=== PATIENT | male | born 1960 | race African-American/Black ===

== ENCOUNTER 2017-05-04 16:33 | Inpatient (IN) | payer OTHER ==
[2017-05-04 18:22] VITALS: BMI 31.6
--- NOTE | 2017-05-04 19:16 | HP ---
CIWA Score - CIWA Score Nausea/Vomitin-Mild Nausea/No Vomiting Muscle Tremors: 4-Moderate,w/Arms Extend Anxiety: 4-Mod. Anxious/Guarded Agitation: 4-Moderately Restless Paroxysmal Sweats: 1-Minimal Palms Moist Orientation: 0-Oriented Tacttile Disturbances: 0-None Auditory Disturbances: 0-None Visual Disturbances: 0-None Headache: 0-None Present CIWA-Ar Total Score: 14 Admission ROS S - HPI Chief Complaint: WITHDRAWAL SX Allergies/Adverse Reactions: Allergies Allergy/AdvReac Type Severity Reaction Status Date / Time No Known Allergies Allergy Verified 05/04/17 19:10 History of Present Illness: 56 YEARS OLD MALE WITH LONG HISTORY OF ALCOHOL NICOTINE COCAINE DEPENDENCE HAS ASTHMA BPH, DIABETES II, HYPERTENSION, HYPERLIPIDEMIA, CONSTIPATION, NEUROPATHY AND DEPRESSION IS ADMITTED TO DETOX Exam Limitations: No Limitations - Ebola screening Have you traveled outside of the country in the last 21 days: No (N) Have you had contact with anyone from an Ebola affected area: No Have you been sick,other than usual withdrawal symptoms: No Do you have a fever: No - Review of Systems Constitutional: Changes in sleep, Weight Stable EENT: reports: Blurred Vision (EYE GLASSES) Respiratory: reports: No Symptoms reported Cardiac: reports: No Symptoms Reported GI: reports: Nausea, Poor Fluid Intake, Abdominal cramping : reports: Frequency Musculoskeletal: reports: Back Pain Integumentary: reports: No Symptoms Reported Neuro: reports: Tremors Endocrine: reports: Unexplained Weight Gain Hematology: reports: No Symptoms Reported Psychiatric: reports: Judgement Intact, Orientated x3, Anxious, Depressed Other Systems: Reviewed and Negative Patient History - Patient Medical History Hx Anemia: No Hx Asthma: Yes Hx Chronic Obstructive Pulmonary Disease (COPD): No Hx Cancer: No Hx Cardiac Disorders: No Hx Congestive Heart Failure: No Hx Hypertension: Yes Hx Hypercholesterolemia: Yes Hx Pacemaker: No HX Cerebrovascular Accident: No Hx Seizures: No Hx Dementia: No Hx Diabetes: Yes Hx Gastrointestinal Disorders: No Hx Liver Disease: No Hx Genitourinary Disorders: No Hx Sexually Transmitted Disorders: No Hx Renal Disease (ESRD): No Hx Thyroid Disease: No Hx Human Immunodeficiency Virus (HIV): No Hx Hepatitis C: No Hx Depression: Yes Hx Suicide Attempt: Yes (2000 [place]) Hx Bipolar Disorder: No Hx Schizophrenia: No - Patient Surgical History Past Surgical History: Yes Hx Neurologic Surgery: No Hx Cataract Extraction: No Hx Cardiac Surgery: No Hx Lung Surgery: No Hx Breast Surgery: No Hx Breast Biopsy: No Hx Abdominal Surgery: Yes (HERNIA 1995 2009) Hx Appendectomy: No Hx Cholecystectomy: No Hx Genitourinary Surgery: No Hx Orthopedic Surgery: Yes (RIGHT KNEE 2002) Anesthesia Reaction: No - PPD History Previous Implant?: Yes Documented Results: Positive w/proof Implanted On Prior [facility] Admission?: No PPD to be Administered?: No - Smoking Cessation Smoking history: Current every day smoker Have you smoked in the past 12 months: Yes Aproximately how many cigarettes per day: 20 Cigars Per Day: 0 Hx Chewing Tobacco Use: No Initiated information on smoking cessation: Yes 'Breaking Loose' booklet given: 05/04/17 - Substance & Tx. History Hx Alcohol Use: Yes Hx Substance Use: Yes Substance Use Type: Alcohol, Cocaine Hx Substance Use Treatment: Yes (2006) - Substances Abused Alcohol Route: Oral Frequency: Daily Amount used: 1/2 GALLON VOLKA Age of first use: 15 Date of Last Use: 05/03/17 Family Disease History - Family Disease History Family Disease History: Heart Disease: Mother (), Brother (), [place] : Father (), Other: Father, Mother, Brother Admission Physical Exam S - Vital Signs Vital Signs: Vital Signs - 24 hr 05/04/17 18:05 Temperature 98.8 F Pulse Rate 80 Respiratory 18 Rate Blood Pressure 136/89 - Physical General Appearance: Yes: Appropriately Dressed, Mild Distress, Obese, Tremorous , Irritable, Sweating, Anxious HEENTM: Yes: Hearing grossly Normal, Normal ENT Inspection, Normocephalic, Normal Voice Respiratory: Yes: Chest Non-Tender, Lungs Clear, Normal Breath Sounds, No Respiratory Distress, No Accessory Muscle Use Neck: Yes: Supple, Trachea in good position Breast: Yes: Breasts Symetrical Cardiology: Yes: Regular Rhythm, Regular Rate, S1, S2 Abdominal: Yes: Non Tender, Soft, Decreased BS Genitourinary: Yes: Within Normal Limits Back: Yes: Normal Inspection Musculoskeletal: Yes: full range of Motion, Gait Steady, Back pain, Muscle Pain (RIGHT KNEE) Extremities: Yes: Normal Range of Motion, Non-Tender, Tremors Neurological: Yes: Alert, Motor Strength 5/5, Normal Response, Depressed Affect Integumentary: Yes: Warm Lymphatic: Yes: Within Normal Limits - Diagnostic (1) Alcohol dependence with uncomplicated withdrawal Current Visit: Yes Status: Acute (2) Cocaine dependence, uncomplicated Current Visit: Yes Status: Chronic (3) Nicotine dependence Current Visit: Yes Status: Acute Qualifiers: Nicotine product type: cigarettes Substance use status: in withdrawal Qualified Code(s): F17.213 - Nicotine dependence, cigarettes, with withdrawal (4) Positive PPD, treated Current Visit: Yes Status: Resolved (5) Asthma Current Visit: Yes Status: Chronic Qualifiers: Asthma severity: mild intermittent Asthma complication type: with status asthmaticus Qualified Code(s): J45.22 - Mild intermittent asthma with status asthmaticus (6) BPH (benign prostatic hyperplasia) Current Visit: Yes Status: Chronic Qualifiers: Lower urinary tract symptom presence: symptoms present Lower urinary tract symptom detail: post-void dribbling Qualified Code(s): N40.1 - Benign prostatic hyperplasia with lower urinary tract symptoms; N39.43 - Post- void dribbling (7) Diabetes mellitus type II, non insulin dependent Current Visit: Yes Status: Chronic (8) Hypertension Current Visit: Yes Status: Chronic Qualifiers: Hypertension type: essential hypertension Qualified Code(s): I10 - Essential (primary) hypertension (9) Hyperlipidemia associated with type 2 diabetes mellitus Current Visit: Yes Status: Chronic (10) Neuropathic arthropathy Current Visit: Yes Status: Chronic (11) Constipation Current Visit: Yes Status: Chronic Qualifiers: Constipation type: slow transit constipation Qualified Code(s): K59.01 - Slow transit constipation (12) Depression (emotion) Current Visit: Yes Status: Suspected Qualifiers: Depression Type: dysthymia Qualified Code(s): F34.1 - Dysthymic disorder Cleared for Admission S - Detox or Rehab [facility] Level of Care: Medically Managed Detox Regimen/Protocol: Librium [facility] Breath Alcohol Content Breath Alcohol Content: 0 Urine Drug Screen - Results Drug Screen Negative: No Urine Drug Screen Results: FRANCESCA-Cocaine
[2017-05-04] MEDS ORDERED: guaiFENesin/D-METHORPHAN HB 10 ML UNIT-DOSE CUPS PO PRN (19:26)
[2017-05-04] MEDS ORDERED: MAGNESIUM HYDROX 2400MG/30ML ORAL SUSPENSION 30 ML CUP PO PRN (19:26)
[2017-05-04] MEDS ORDERED: MAG HYDROX/AL HYDROX/SIMETH 30 ML UNIT-DOSE CUP PO PRN (19:26)
[2017-05-04] MEDS ORDERED: P-EPHED 60MG/TRIPROLIDI 2.5MG TABLET PO PRN (19:26)
[2017-05-04] MEDS ORDERED: chlordiazePOXIDE HCL 25 MG CAPSULE PO ONE (19:26)
[2017-05-04] MEDS ORDERED: NICOTINE POLACRILEX 4 MG GUM BUC PRN (19:26)
[2017-05-04] MEDS ORDERED: chlordiazePOXIDE HCL 25 MG CAPSULE PO PRN (19:26)
[2017-05-04] MEDS ORDERED: MAGNESIUM CITRATE 300 ML BOTTLE PO PRN (19:26)
[2017-05-04] MEDS ORDERED: MENTHOL/PHENOL 1 EACH UD MM PRN (19:26)
[2017-05-04] MEDS ORDERED: LOPERAMIDE HCL 2 MG CAPSULE PO PRN (19:26)
[2017-05-04] MEDS ORDERED: hydrOXYzine PAMOATE 50 MG CAPSULE (FP) PO PRN (19:26)
[2017-05-04] MEDS ORDERED: ALBUTEROL SO4 6.7 GM HFA INHALER IH PRN (19:28)
[2017-05-04] MEDS: THIAMINE HCL 100 MG TABLET (FP) PO SCH (22:28)
[2017-05-04] MEDS: GABAPENTIN 400 MG CAPSULE (FP) PO SCH (22:30)
[2017-05-04] MEDS: chlordiazePOXIDE HCL 25 MG CAPSULE PO SCH (22:30)
[2017-05-04] MEDS: ATORVASTATIN CA 40 MG TABLET (FP) PO SCH (22:30)
[2017-05-05] MEDS: CYCLOBENZAPRINE HCL 10 MG TABLET (FP) PO PRN ×2 (06:04→22:14)
[2017-05-05] MEDS: chlordiazePOXIDE HCL 25 MG CAPSULE PO SCH ×4 (06:04→22:15)
[2017-05-05] MEDS: GABAPENTIN 400 MG CAPSULE (FP) PO SCH ×3 (06:04→22:14)
[2017-05-05] MEDS: metFORMIN HCL 500 MG TABLET (FP) PO SCH ×2 (06:13→17:41)
[2017-05-05] MEDS: NICOTINE 21 MG/24 HOURS TOPICAL PATCH TD SCH (10:19)
[2017-05-05] MEDS: LISINOPRIL 20 MG TABLET (FP) PO SCH (10:20)
[2017-05-05] MEDS: PRENATAL VITAMINS W/ FOLIC ACID TABLET (FP) PO SCH (10:21)
[2017-05-05] MEDS: ASPIRIN 81 MG CHEWABLE TABLETS PO SCH (10:21)
[2017-05-05] MEDS: FINASTERIDE 5 MG TABLET (FP) PO SCH (10:21)
[2017-05-05] MEDS: dilTIAZem HCL 30 MG TABLET (FP) PO SCH (10:21)
[2017-05-05 10:58] LABS: MCH 28.5 pg (25.7-33.7); MCHC 32.4 g/dl (32.0-35.9); MEAN PLT VOLUME 8.8 fl (7.5-11.1); PLATELET COUNT 272 K/MM3 (134-434); RDW 14.5 % (11.9-15.9); WHITE BLOOD COUNT 8.2 K/mm3 (4.0-10.0)
[2017-05-05 11:09] LABS: URINE APPEARANCE CLEAR; URINE BILIRUBIN NEGATIVE (NEGATIVE); URINE BLOOD 1+ (NEGATIVE); URINE COLOR LTYELLOW; URINE GLUCOSE (UA) NEGATIVE (NEGATIVE); URINE KETONE NEGATIVE (NEGATIVE); URINE LEUK ESTERASE NEGATIVE (NEGATIVE); URINE NITRITE NEGATIVE (NEGATIVE); URINE PROTEIN NEGATIVE (NEGATIVE); URINE UROBILINOGEN NEGATIVE mg/dL (0.2-1.0)
[2017-05-05 11:46] LABS: CALCIUM OXALATE CRYSTALS RARE /hpf (NONE SEEN); URINE MUCUS RARE; URINE RBC 6 /hpf (0-3); URINE WBC 3 /hpf (3-5)
--- NOTE | 2017-05-05 11:50 | CONSULT ---
[facility] Psychiatric Consult - Data Date of interview: 05/05/17 Admission source: [facility] Identifying data: Readmission to [facility] for this 56 y/o AA male seeking detox treatment on for alcohol and cocaine dependence.Patient is ,childless,domiciled and employed. Substance Abuse History: Discussed with the patient in this session.Mr Hall confirms this report. Smoking Cessation. Smoking history: Current every day smoker. Have you smoked in the past 12 months: Yes. Aproximately how many cigarettes per day: 20. Cigars Per Day: 0. Hx Chewing Tobacco Use: No. Initiated information on smoking cessation: Yes. 'Breaking Loose' booklet given : 05/04/17. - Substance & Tx. History. Hx Alcohol Use: Yes. Hx Substance Use : Yes. Substance Use Type: Alcohol, Cocaine. Hx Substance Use Treatment: Yes ( 2006). - Substances Abused. Alcohol. Route: Oral. Frequency: Daily. Amount used: 1/2 GALLON VOLKA. Age of first use: 15. Date of Last Use: Medical History: Remarkable for lower back pain,sciatica,migraine headaches, bronchial asthma,dyslipidemia,benign prostatic hyperplasia,neuropathy, hypertension,diabetes mellitus,herniorraphy (?) and a history of orthosurgery ( right knee). Psychiatric History: Patient admits to a [facility] hospitalization at [facility] in [facility].Diagnosed with MDD.Used to be on remeron (dose not recalled).Mr Hall is under the care of a psychiatrist at a mental health clinic in [facility].He admits to a history of one suicide attempt,years ago,via self-mutilation (wrist-cutting). Physical/Sexual Abuse/Trauma History: Patient denies. Additional Comment: Urine Drug Screen Results: FRANCESCA-Cocaine.Noted. Mental Status Exam - Mental Status Exam Alert and Oriented to: Time, Place, Person Cognitive Function: Good Patient Appearance: Unkempt, Disheveled Mood: Withdrawn Affect: Mood Congruent Patient Behavior: Sedated (mildly), Fatigued Speech Pattern: Clear Voice Loudness: Normal Thought Process: Goal Oriented Thought Disorder: Not Present Hallucinations: Denies Suicidal Ideation: Denies Homicidal Ideation: Denies Insight/Judgement: Poor Sleep: Well Appetite: Good Muscle strength/Tone: Normal Gait/Station: Normal Psychiatric Findings - Problem List ([place] 1, 2,3) (1) Alcohol dependence with uncomplicated withdrawal Current Visit: Yes Status: Acute (2) Cocaine dependence, uncomplicated Current Visit: Yes Status: Acute (3) Nicotine dependence Current Visit: Yes Status: Acute Qualifiers: Nicotine product type: cigarettes Substance use status: in withdrawal Qualified Code(s): F17.213 - Nicotine dependence, cigarettes, with withdrawal (4) Substance induced mood disorder Current Visit: Yes Status: Acute (5) Asthma Current Visit: Yes Status: Chronic Qualifiers: Asthma severity: mild intermittent Asthma complication type: with status asthmaticus Qualified Code(s): J45.22 - Mild intermittent asthma with status asthmaticus (6) BPH (benign prostatic hyperplasia) Current Visit: Yes Status: Chronic Qualifiers: Lower urinary tract symptom presence: symptoms present Lower urinary tract symptom detail: post-void dribbling Qualified Code(s): N40.1 - Benign prostatic hyperplasia with lower urinary tract symptoms; R35.0 - Frequency of micturition (7) Diabetes mellitus type II, non insulin dependent Current Visit: Yes Status: Chronic (8) Hyperlipidemia associated with type 2 diabetes mellitus Current Visit: Yes Status: Chronic (9) Hypertension Current Visit: Yes Status: Chronic Qualifiers: Hypertension type: essential hypertension Qualified Code(s): I10 - Essential (primary) hypertension (10) Neuropathic arthropathy Current Visit: Yes Status: Chronic (11) Positive PPD, treated Current Visit: Yes Status: Resolved (12) Constipation Current Visit: Yes Status: Chronic Qualifiers: Constipation type: slow transit constipation Qualified Code(s): K59.01 - Slow transit constipation - Initial Treatment Plan Initial Treatment Plan: Psychoeducation.Detoxification.Medication : remeron 15 mg po hs (reduced).Pharmacy claims are reviewed.Noted script for remeron 45 mg/ hs on 05/01/17 at [place] [employer].Side effects/benefist discussed with the patient.He agrees with this careplan.observation.NO script needed at discharge.
[2017-05-05 12:03] LABS: ALBUMIN 3.3 g/dl (3.4-5.0); ANION GAP 9 (8-16); BILIRUBIN,TOTAL 0.2 mg/dL (0.2-1.0); CALCIUM 8.6 mg/dL (8.5-10.1); CO2 27 mmol/L (21-32); CREATININE 1.4 mg/dL (0.7-1.3); GLUCOSE,RANDOM 102 mg/dL (74-106); SGOT/AST 7 U/L (15-37); SGPT/ALT 20 U/L (12-78); TOT PROT 6.5 g/dl (6.4-8.2)
[2017-05-05 12:04] LABS: ALK PHOS 100 U/L (45-117)
--- NOTE | 2017-05-05 18:44 | EKG ---
Test Reason : Blood Pressure : / mmHG Vent. Rate : 069 BPM Atrial Rate : 069 BPM P-R Int : 164 ms QRS Dur : 086 ms QT Int : 390 ms P-R-T Axes : 065 049 044 degrees QTc Int : 417 ms NORMAL SINUS RHYTHM POSSIBLE LEFT ATRIAL ENLARGEMENT BORDERLINE ECG NO PREVIOUS ECGS AVAILABLE Confirmed by HONEY SANTIAGO MD ([id number]) on 05/05/2017 6:44:44 PM Referred By: Confirmed By:HONEY SANTIAGO MD
--- NOTE | 2017-05-05 20:11 | PN ---
[facility] CIWA - CIWA Score Nausea/Vomitin-Mild Nausea/No Vomiting Muscle Tremors: 3 Anxiety: 3 Agitation: 2 Paroxysmal Sweats: 2 Orientation: 0-Oriented Tacttile Disturbances: 2-Mild Itch/Numbness/Burn Auditory Disturbances: 2-Mild Harshness/Frighten Visual Disturbances: 0-None Headache: 0-None Present CIWA-Ar Total Score: 15 BHS Progress Note (SOAP) Subjective: Fatigue, Tremors. Objective: PT. A & O X 3. NO ACUTE DISTRESS. 05/05/17 20:08 Vital Signs Temperature 96.9 F L 05/05/17 18:58 Pulse Rate 73 05/05/17 18:58 Respiratory Rate 18 05/05/17 18:58 Blood Pressure 130/73 05/05/17 18:58 O2 Sat by Pulse Oximetry (%) Laboratory Tests 05/04/17 05/04/17 05/05/17 10:55 19:26 06:03 WBC RBC Hgb Hct MCV MCH MCHC RDW Plt Count MPV Sodium Potassium Chloride Carbon Dioxide Anion Gap BUN Creatinine Creat Clearance w eGFR POC Glucometer 106 124 Random Glucose Calcium Total Bilirubin AST ALT Alkaline Phosphatase Total Protein Albumin Urine Color Ltyellow Urine Appearance Clear Urine pH 5.0 Ur Specific [place] 1.020 Urine Protein Negative Urine Glucose (UA) Negative Urine Ketones Negative Urine Blood 1+ H Urine Nitrite Negative Urine Bilirubin Negative Urine Urobilinogen Negative Ur Leukocyte Esterase Negative Urine RBC 6 Urine WBC 3 Ur Epithelial Cells Rare Calcium Oxalate Crystal Rare Urine Mucus Rare RPR Titer 05/05/17 05/05/17 05/05/17 08:00 08:00 08:00 WBC 8.2 RBC 5.00 Hgb 14.2 Hct 44.0 MCV 88.0 MCH 28.5 MCHC 32.4 RDW 14.5 Plt Count 272 MPV 8.8 Sodium 146 H Potassium 3.8 Chloride 110 H Carbon Dioxide 27 Anion Gap 9 BUN 18 Creatinine 1.4 H Creat Clearance w eGFR 52.62 POC Glucometer Random Glucose 102 Calcium 8.6 Total Bilirubin 0.2 AST 7 L ALT 20 Alkaline Phosphatase 100 Total Protein 6.5 Albumin 3.3 L Urine Color Urine Appearance Urine pH Ur Specific [place] Urine Protein Urine Glucose (UA) Urine Ketones Urine Blood Urine Nitrite Urine Bilirubin Urine Urobilinogen Ur Leukocyte Esterase Urine RBC Urine WBC Ur Epithelial Cells Calcium Oxalate Crystal Urine Mucus RPR Titer Nonreactive 08/19/17 16:17 WBC RBC Hgb Hct MCV MCH MCHC RDW Plt Count MPV Sodium Potassium Chloride Carbon Dioxide Anion Gap BUN Creatinine Creat Clearance w eGFR POC Glucometer 113 Random Glucose Calcium Total Bilirubin AST ALT Alkaline Phosphatase Total Protein Albumin Urine Color Urine Appearance Urine pH Ur Specific [place] Urine Protein Urine Glucose (UA) Urine Ketones Urine Blood Urine Nitrite Urine Bilirubin Urine Urobilinogen Ur Leukocyte Esterase Urine RBC Urine WBC Ur Epithelial Cells Calcium Oxalate Crystal Urine Mucus RPR Titer LABS NOTED. Assessment: 05/05/17 20:08 WITHDRAWAL SYMPTOMS. Plan: CONTINUE DETOX. REPEAT UA FOR ABNORMAL ADMISSION VALUES (URINE BLOOD, RBC).
[2017-05-05] MEDS: THIAMINE HCL 100 MG TABLET (FP) PO SCH (22:14)
[2017-05-05] MEDS: ATORVASTATIN CA 40 MG TABLET (FP) PO SCH (22:14)
[2017-05-05] MEDS: diphenhydrAMINE HCL 50 MG CAPSULE PO PRN (22:16)
[2017-05-06] MEDS: GABAPENTIN 400 MG CAPSULE (FP) PO SCH ×3 (06:13→22:20)
[2017-05-06] MEDS: chlordiazePOXIDE HCL 25 MG CAPSULE PO SCH ×4 (06:13→17:21)
[2017-05-06] MEDS: CYCLOBENZAPRINE HCL 10 MG TABLET (FP) PO PRN (06:13)
[2017-05-06] MEDS: metFORMIN HCL 500 MG TABLET (FP) PO SCH ×2 (06:13→17:21)
[2017-05-06] MEDS: FINASTERIDE 5 MG TABLET (FP) PO SCH (10:25)
[2017-05-06] MEDS: dilTIAZem HCL 30 MG TABLET (FP) PO SCH (10:25)
[2017-05-06] MEDS: ASPIRIN 81 MG CHEWABLE TABLETS PO SCH (10:25)
[2017-05-06] MEDS: PRENATAL VITAMINS W/ FOLIC ACID TABLET (FP) PO SCH (10:26)
[2017-05-06] MEDS: NICOTINE 21 MG/24 HOURS TOPICAL PATCH TD SCH (10:26)
[2017-05-06] MEDS: LISINOPRIL 20 MG TABLET (FP) PO SCH (10:26)
--- NOTE | 2017-05-06 15:49 | PN ---
[facility] CIWA - CIWA Score Nausea/Vomitin Muscle Tremors: 4-Moderate,w/Arms Extend Anxiety: 4-Mod. Anxious/Guarded Agitation: 4-Moderately Restless Paroxysmal Sweats: 3 Orientation: 0-Oriented Tacttile Disturbances: 1-Very Mild Itch/Numbness Auditory Disturbances: 0-None Visual Disturbances: 0-None Headache: 0-None Present CIWA-Ar Total Score: 19 S Progress Note (SOAP) Subjective: Sweating, tremor, chills, interrupted sleep Objective: 05/06/17 15:46 Last Vital Signs Temp Pulse Resp BP Pulse Ox 96.3 F L 70 18 122/86 05/06/17 10:14 05/06/17 10:14 05/06/17 10:14 05/06/17 10:14 Laboratory Tests 05/04/17 05/04/17 05/05/17 10:55 19:26 06:03 WBC RBC Hgb Hct MCV MCH MCHC RDW Plt Count MPV Sodium Potassium Chloride Carbon Dioxide Anion Gap BUN Creatinine Creat Clearance w eGFR POC Glucometer 106 124 Random Glucose Calcium Total Bilirubin AST ALT Alkaline Phosphatase Total Protein Albumin Urine Color Ltyellow Urine Appearance Clear Urine pH 5.0 Ur Specific [place] 1.020 Urine Protein Negative Urine Glucose (UA) Negative Urine Ketones Negative Urine Blood 1+ H Urine Nitrite Negative Urine Bilirubin Negative Urine Urobilinogen Negative Ur Leukocyte Esterase Negative Urine RBC 6 Urine WBC 3 Ur Epithelial Cells Rare Calcium Oxalate Crystal Rare Urine Mucus Rare RPR Titer 05/05/17 05/05/17 05/05/17 08:00 08:00 08:00 WBC 8.2 RBC 5.00 Hgb 14.2 Hct 44.0 MCV 88.0 MCH 28.5 MCHC 32.4 RDW 14.5 Plt Count 272 MPV 8.8 Sodium 146 H Potassium 3.8 Chloride 110 H Carbon Dioxide 27 Anion Gap 9 BUN 18 Creatinine 1.4 H Creat Clearance w eGFR 52.62 POC Glucometer Random Glucose 102 Calcium 8.6 Total Bilirubin 0.2 AST 7 L ALT 20 Alkaline Phosphatase 100 Total Protein 6.5 Albumin 3.3 L Urine Color Urine Appearance Urine pH Ur Specific [place] Urine Protein Urine Glucose (UA) Urine Ketones Urine Blood Urine Nitrite Urine Bilirubin Urine Urobilinogen Ur Leukocyte Esterase Urine RBC Urine WBC Ur Epithelial Cells Calcium Oxalate Crystal Urine Mucus RPR Titer Nonreactive 05/05/17 05/06/17 16:17 06:15 WBC RBC Hgb Hct MCV MCH MCHC RDW Plt Count MPV Sodium Potassium Chloride Carbon Dioxide Anion Gap BUN Creatinine Creat Clearance w eGFR POC Glucometer 113 100 Random Glucose Calcium Total Bilirubin AST ALT Alkaline Phosphatase Total Protein Albumin Urine Color Urine Appearance Urine pH Ur Specific [place] Urine Protein Urine Glucose (UA) Urine Ketones Urine Blood Urine Nitrite Urine Bilirubin Urine Urobilinogen Ur Leukocyte Esterase Urine RBC Urine WBC Ur Epithelial Cells Calcium Oxalate Crystal Urine Mucus RPR Titer Labs noted: UA shows 1+ blood; bun 18, serum creatinine 1.4, GFR 52.62 Assessment: 05/06/17 15:48 Withdrawal symptoms Noted with prerenal azotemia vs UBALDO Noted with microscopic hematuria Plan: Continue detox Prerenal azotemia vs UBALDO: encouraged to drink lots of water, repeat BMP Microscopic hematuria: encouraged to drink lots of water, repeat UA
[2017-05-06] MEDS: THIAMINE HCL 100 MG TABLET (FP) PO SCH (22:20)
[2017-05-06] MEDS: chlordiazePOXIDE 5 MG CAPSULE PO SCH (22:20)
[2017-05-06] MEDS: ATORVASTATIN CA 40 MG TABLET (FP) PO SCH (22:20)
[2017-05-07] MEDS: chlordiazePOXIDE 5 MG CAPSULE PO SCH ×3 (05:27→17:05)
[2017-05-07] MEDS: GABAPENTIN 400 MG CAPSULE (FP) PO SCH ×3 (05:27→22:09)
[2017-05-07] MEDS: metFORMIN HCL 500 MG TABLET (FP) PO SCH ×2 (07:14→17:05)
[2017-05-07] MEDS: LISINOPRIL 20 MG TABLET (FP) PO SCH (10:14)
[2017-05-07] MEDS: PRENATAL VITAMINS W/ FOLIC ACID TABLET (FP) PO SCH (10:14)
[2017-05-07] MEDS: ASPIRIN 81 MG CHEWABLE TABLETS PO SCH (10:14)
[2017-05-07] MEDS: dilTIAZem HCL 30 MG TABLET (FP) PO SCH (10:14)
[2017-05-07] MEDS: NICOTINE 21 MG/24 HOURS TOPICAL PATCH TD SCH (10:15)
[2017-05-07] MEDS: FINASTERIDE 5 MG TABLET (FP) PO SCH (10:15)
[2017-05-07 10:36] LABS: ANION GAP 6 (8-16); CALCIUM 8.9 mg/dL (8.5-10.1); CO2 30 mmol/L (21-32); CREATININE 1.2 mg/dL (0.7-1.3); GLUCOSE,RANDOM 95 mg/dL (74-106)
--- NOTE | 2017-05-07 10:41 | PN ---
BHS Progress Note (SOAP) Subjective: Sweating,interrupted sleep,restless Objective: 05/07/17 10:40 Vital Signs - 8 hr 05/07/17 05/07/17 05/07/17 03:51 06:24 09:38 Temperature 97.0 F L 97.6 F Pulse Rate 71 74 Respiratory 18 18 20 Rate Blood Pressure 125/83 121/84 Laboratory Last Values WBC 8.2 K/mm3 (4.0-10.0) 05/05/17 08:00 RBC 5.00 M/mm3 (4.00-5.60) 05/05/17 08:00 Hgb 14.2 GM/dL (11.7-16.9) 05/05/17 08:00 Hct 44.0 % (35.4-49) 05/05/17 08:00 MCV 88.0 fl (80-96) 05/05/17 08:00 MCH 28.5 pg (25.7-33.7) 05/05/17 08:00 MCHC 32.4 g/dl (32.0-35.9) 05/05/17 08:00 RDW 14.5 % (11.9-15.9) 05/05/17 08:00 Plt Count 272 K/MM3 (134-434) 05/05/17 08:00 MPV 8.8 fl (7.5-11.1) 05/05/17 08:00 Sodium 142 mmol/L (136-145) 05/07/17 07:00 Potassium 4.3 mmol/L (3.5-5.1) 05/07/17 07:00 Chloride 106 mmol/L (98-107) 05/07/17 07:00 Carbon Dioxide 30 mmol/L (21-32) 05/07/17 07:00 Anion Gap 6 (8-16) L 05/07/17 07:00 BUN 17 mg/dL (7-18) 05/07/17 07:00 Creatinine 1.2 mg/dL (0.7-1.3) 05/07/17 07:00 Creat Clearance w eGFR 52.62 (>60) 05/05/17 08:00 POC Glucometer 112 UNITS (()) 05/07/17 05:35 Random Glucose 95 mg/dL (74-106) 05/07/17 07:00 Calcium 8.9 mg/dL (8.5-10.1) 05/07/17 07:00 Total Bilirubin 0.2 mg/dL (0.2-1.0) 05/05/17 08:00 AST 7 U/L (15-37) L 05/05/17 08:00 ALT 20 U/L (12-78) 05/05/17 08:00 Alkaline Phosphatase 100 U/L (45-117) 05/05/17 08:00 Total Protein 6.5 g/dl (6.4-8.2) 05/05/17 08:00 Albumin 3.3 g/dl (3.4-5.0) L 05/05/17 08:00 Urine Color Ltyellow 05/04/17 10:55 Urine Appearance Clear 05/04/17 10:55 Urine pH 5.0 (5.0-8.0) 05/04/17 10:55 Ur Specific [place] 1.020 (1.005-1.025) 05/04/17 10:55 Urine Protein Negative (NEGATIVE) 05/04/17 10:55 Urine Glucose (UA) Negative (NEGATIVE) 05/04/17 10:55 Urine Ketones Negative (NEGATIVE) 05/04/17 10:55 Urine Blood 1+ (NEGATIVE) H 05/04/17 10:55 Urine Nitrite Negative (NEGATIVE) 05/04/17 10:55 Urine Bilirubin Negative (NEGATIVE) 05/04/17 10:55 Urine Urobilinogen Negative mg/dL (0.2-1.0) 05/04/17 10:55 Ur Leukocyte Esterase Negative (NEGATIVE) 05/04/17 10:55 Urine RBC 6 /hpf (0-3) 05/04/17 10:55 Urine WBC 3 /hpf (3-5) 05/04/17 10:55 Ur Epithelial Cells Rare /hpf (FEW) 05/04/17 10:55 Calcium Oxalate Crystal Rare /hpf (NONE SEEN) 05/04/17 10:55 Urine Mucus Rare 05/04/17 10:55 RPR Titer Nonreactive (NONREACTIVE) 05/05/17 08:00 labs noted Assessment: 05/07/17 10:41 Withdrawal sx. Plan: continue detox
[2017-05-07 14:35] LABS: URINE APPEARANCE SLCLOUDY; URINE BILIRUBIN NEGATIVE (NEGATIVE); URINE BLOOD NEGATIVE (NEGATIVE); URINE COLOR LTYELLOW; URINE GLUCOSE (UA) NEGATIVE (NEGATIVE); URINE KETONE NEGATIVE (NEGATIVE); URINE LEUK ESTERASE NEGATIVE (NEGATIVE); URINE NITRITE NEGATIVE (NEGATIVE); URINE PROTEIN NEGATIVE (NEGATIVE); URINE UROBILINOGEN NEGATIVE mg/dL (0.2-1.0)
[2017-05-07] MEDS: ATORVASTATIN CA 40 MG TABLET (FP) PO SCH (22:09)
[2017-05-07] MEDS: THIAMINE HCL 100 MG TABLET (FP) PO SCH (22:09)
[2017-05-07] MEDS: chlordiazePOXIDE HCL 10 MG CAPSULE PO SCH (22:09)
[2017-05-07] MEDS: diphenhydrAMINE HCL 50 MG CAPSULE PO PRN (22:10)
[2017-05-08] MEDS: chlordiazePOXIDE HCL 10 MG CAPSULE PO SCH ×3 (05:41→16:57)
[2017-05-08] MEDS: GABAPENTIN 400 MG CAPSULE (FP) PO SCH ×3 (05:41→21:42)
[2017-05-08] MEDS: metFORMIN HCL 500 MG TABLET (FP) PO SCH ×2 (07:06→16:55)
[2017-05-08] MEDS: dilTIAZem HCL 30 MG TABLET (FP) PO SCH (10:13)
[2017-05-08] MEDS: PRENATAL VITAMINS W/ FOLIC ACID TABLET (FP) PO SCH (10:13)
[2017-05-08] MEDS: FINASTERIDE 5 MG TABLET (FP) PO SCH (10:13)
[2017-05-08] MEDS: LISINOPRIL 20 MG TABLET (FP) PO SCH (10:13)
[2017-05-08] MEDS: ASPIRIN 81 MG CHEWABLE TABLETS PO SCH (10:13)
[2017-05-08] MEDS: NICOTINE 21 MG/24 HOURS TOPICAL PATCH TD SCH (10:14)
--- NOTE | 2017-05-08 10:51 | DS ---
[facility] Detox Discharge Summary Admission Date: 05/04/17 Discharge Date: 05/08/17 - History Present History: Alcohol Dependence, Cocaine Dependence Additional Comments: DETOX COMPLETED.ALERT O X 3. NAD. PT TO FOLLOW UP WITH HIS PCP AT [facility] FOR MEDICAL MANAGEMENT OF HIS COMORBID CONDITIONS. Pertinent Past History: ASTHMA HYPERTENSION TYPE 2 DM HYPERLIPIDEMIA BENIGN PROSTATE HYPERTROPHY NEUROPATHIC ARTHROPATHY PSYCH HX-MOOD DISORDER - Physical Exam Results Vital Signs: Vital Signs Temperature 97.3 F L 05/08/17 09:32 Pulse Rate 76 05/08/17 09:32 Respiratory Rate 18 05/08/17 09:32 Blood Pressure 132/89 05/08/17 09:32 O2 Sat by Pulse Oximetry (%) Pertinent Admission Physical Exam Findings: WITHDRAWAL SX Laboratory Last Values WBC 8.2 K/mm3 (4.0-10.0) 05/05/17 08:00 RBC 5.00 M/mm3 (4.00-5.60) 05/05/17 08:00 Hgb 14.2 GM/dL (11.7-16.9) 05/05/17 08:00 Hct 44.0 % (35.4-49) 05/05/17 08:00 MCV 88.0 fl (80-96) 05/05/17 08:00 MCH 28.5 pg (25.7-33.7) 05/05/17 08:00 MCHC 32.4 g/dl (32.0-35.9) 05/05/17 08:00 RDW 14.5 % (11.9-15.9) 05/05/17 08:00 Plt Count 272 K/MM3 (134-434) 05/05/17 08:00 MPV 8.8 fl (7.5-11.1) 05/05/17 08:00 Sodium 142 mmol/L (136-145) 05/07/17 07:00 Potassium 4.3 mmol/L (3.5-5.1) 05/07/17 07:00 Chloride 106 mmol/L (98-107) 05/07/17 07:00 Carbon Dioxide 30 mmol/L (21-32) 05/07/17 07:00 Anion Gap 6 (8-16) L 05/07/17 07:00 BUN 17 mg/dL (7-18) 05/07/17 07:00 Creatinine 1.2 mg/dL (0.7-1.3) 05/07/17 07:00 Creat Clearance w eGFR 52.62 (>60) 05/05/17 08:00 POC Glucometer 125 UNITS (()) 05/08/17 05:40 Random Glucose 95 mg/dL (74-106) 05/07/17 07:00 Calcium 8.9 mg/dL (8.5-10.1) 05/07/17 07:00 Total Bilirubin 0.2 mg/dL (0.2-1.0) 05/05/17 08:00 AST 7 U/L (15-37) L 05/05/17 08:00 ALT 20 U/L (12-78) 05/05/17 08:00 Alkaline Phosphatase 100 U/L (45-117) 05/05/17 08:00 Total Protein 6.5 g/dl (6.4-8.2) 05/05/17 08:00 Albumin 3.3 g/dl (3.4-5.0) L 05/05/17 08:00 Urine Color Ltyellow 05/07/17 09:00 Urine Appearance Slcloudy 05/07/17 09:00 Urine pH 5.0 (5.0-8.0) 05/07/17 09:00 Ur Specific [place] 1.025 (1.005-1.025) 05/07/17 09:00 Urine Protein Negative (NEGATIVE) 05/07/17 09:00 Urine Glucose (UA) Negative (NEGATIVE) 05/07/17 09:00 Urine Ketones Negative (NEGATIVE) 05/07/17 09:00 Urine Blood Negative (NEGATIVE) 05/07/17 09:00 Urine Nitrite Negative (NEGATIVE) 05/07/17 09:00 Urine Bilirubin Negative (NEGATIVE) 05/07/17 09:00 Urine Urobilinogen Negative mg/dL (0.2-1.0) 05/07/17 09:00 Ur Leukocyte Esterase Negative (NEGATIVE) 05/07/17 09:00 Urine RBC 6 /hpf (0-3) 05/04/17 10:55 Urine WBC 3 /hpf (3-5) 05/04/17 10:55 Ur Epithelial Cells Rare /hpf (FEW) 05/04/17 10:55 Calcium Oxalate Crystal Rare /hpf (NONE SEEN) 05/04/17 10:55 Urine Mucus Rare 05/04/17 10:55 RPR Titer Nonreactive (NONREACTIVE) 05/05/17 08:00 - Treatment Hospital Course: Detox Protocol Followed, Detoxed Safely, Responded well, Discharged Condition Good, Rehab Referral Accepted Patient has Accepted a Rehab Referral to: [facility] [address] [place] [address] - Medication Discharge Medications: Ambulatory Orders Aspirin [ASA -] 81 mg PO DAILY 05/04/17 Atorvastatin Ca [Lipitor] 40 mg PO HS 05/04/17 Diltiazem [Cardizem -] 30 mg PO TID 05/04/17 Ibuprofen [Motrin -] 400 mg PO TID 05/04/17 Lisinopril [Prinivil -] 40 mg PO DAILY 05/04/17 Metformin HCl [Glucophage -] 500 mg PO BID 05/04/17 Mirtazapine [Remeron -] 45 mg PO DAILY 05/04/17 - AMA Did Patient Leave Against Medical Advice: No
--- NOTE | 2017-05-08 15:16 | HP ---
Psychiatrist Admission - Data Date of interview: 05/08/17 Admission source: 3N Identifying data: This is the first 5N inpatient rehabilitation admission for this 56 year old AA male who is ,childless,domiciled and employed. Medical History: Low back pain,BPH, HTN, DM,migrains, dyslipidemia, h/o orthosurgery R knee. Smokes cigarettes 20 a day. Psychiatric History: Patient reports was diagnosed with anxiety and depression, first psychiatric hospitalizationin 1992 following suicidal attemps as cutting his wrist, admitted to [facility] for 3 weeks, patient reports he was using cocaine and drinking alcohol at that time. Reports 2 subsequent psychiatric hospitalizations with last one in 2000 at [facility] states he jumpted in [facility] [facility]. Currently sees the psychiatrist Maryan Cabrera at [facility] and on Remeron 45 mg jimbo hs, he reports he still feels sad, poor sleep. He treated in the past with Wellbutrin, Paxil, Zoloft. Physical/Sexual Abuse/Trauma History: Denies history of abuse. Vital Signs: Vital Signs - 24 hr 05/07/17 05/07/17 05/08/17 17:09 22:14 03:23 Temperature 96.8 F L 97.9 F Pulse Rate 72 86 Respiratory 19 18 18 Rate Blood Pressure 129/73 124/88 05/08/17 05/08/17 05/08/17 06:17 09:32 14:56 Temperature 97.1 F L 97.3 F L 98 F Pulse Rate 68 76 78 Respiratory 18 18 18 Rate Blood Pressure 123/81 132/89 134/85 Allergies/Adverse Reactions: Allergies Allergy/AdvReac Type Severity Reaction Status Date / Time No Known Allergies Allergy Verified 05/08/17 14:31 Date of last physical exam: 05/05/17 Concur with the findings of this exam: Yes - Substance Abuse/Tx History Hx Alcohol Use: Yes (started at age of 15, daily 1/2 gallon of vodka) Hx Substance Use: Yes Substance Use Type: Cocaine Hx Substance Use Treatment: Yes ([facility] [place]) - Admission Criteria Previous failed treatment: Yes Poor recovery environment: Yes Comorbidities: Yes Lacks judgement: Yes Mental Status Exam - Mental Status Exam Alert and Oriented to: Time, Place, Person Cognitive Function: Good Patient Appearance: Well Groomed Mood: Sad, Anxious Affect: Appropriate, Mood Congruent Patient Behavior: Appropriate, Cooperative Speech Pattern: Clear, Appropriate Voice Loudness: Normal Thought Process: Intact, Goal Oriented Thought Disorder: Not Present Hallucinations: Denies Suicidal Ideation: Denies Homicidal Ideation: Denies Insight/Judgement: Fair Sleep: Poorly, Difficulty falling asleep Appetite: Fair Muscle strength/Tone: Normal Gait/Station: Normal Psychiatric Findings - Problem List ([place] 1, 2,3) (1) Nicotine dependence Current Visit: Yes Status: Acute Qualifiers: Nicotine product type: cigarettes Substance use status: in withdrawal Qualified Code(s): F17.213 - Nicotine dependence, cigarettes, with withdrawal (2) Asthma Current Visit: Yes Status: Chronic Qualifiers: Asthma severity: mild intermittent Asthma complication type: with status asthmaticus Qualified Code(s): J45.22 - Mild intermittent asthma with status asthmaticus (3) Alcohol dependence Current Visit: Yes Status: Acute (4) Cocaine dependence Current Visit: Yes Status: Acute (5) MDD (major depressive disorder) Current Visit: Yes Status: Acute - Initial Treatment Plan Initial Treatment Plan: to continue Remeron 45 mg po hs, add Melatonin 5 mg po hs and Lexapro 5 mg po daily, properties and indications discussed with the patient, continue to monitor progress.
[2017-05-08] MEDS ORDERED: BENZOCAINE 28 GM HEMORRHOIDAL OINTMENT PR ONE (20:05)
[2017-05-08] MEDS: ATORVASTATIN CA 40 MG TABLET (FP) PO SCH (21:42)
[2017-05-08] MEDS: THIAMINE HCL 100 MG TABLET (FP) PO SCH (21:42)
[2017-05-08] MEDS: MIRTAZAPINE 15 MG TABLET (FP) PO SCH (21:42)
[2017-05-08] MEDS: MELATONIN 5 MG TABLETS PO PRN (21:43)
[2017-05-09] MEDS: metFORMIN HCL 500 MG TABLET (FP) PO SCH ×2 (07:27→16:40)
[2017-05-09] MEDS: GABAPENTIN 400 MG CAPSULE (FP) PO SCH ×3 (07:27→22:00)
[2017-05-09] MEDS: ESCITALOPRAM OXALATE 10 MG TABLET (FP) PO SCH (10:36)
[2017-05-09] MEDS: LISINOPRIL 20 MG TABLET (FP) PO SCH (10:36)
[2017-05-09] MEDS: PRENATAL VITAMINS W/ FOLIC ACID TABLET (FP) PO SCH (10:36)
[2017-05-09] MEDS: ASPIRIN 81 MG CHEWABLE TABLETS PO SCH (10:36)
[2017-05-09] MEDS: NICOTINE 21 MG/24 HOURS TOPICAL PATCH TD SCH (10:37)
[2017-05-09] MEDS: CYCLOBENZAPRINE HCL 10 MG TABLET (FP) PO PRN (10:39)
[2017-05-09] MEDS: FINASTERIDE 5 MG TABLET (FP) PO SCH (11:00)
[2017-05-09] MEDS: dilTIAZem HCL 30 MG TABLET (FP) PO SCH (11:00)
[2017-05-09] MEDS: ACETAMINOPHEN 325 MG TABLET (FP) PO PRN (11:15)
[2017-05-09] MEDS: MIRTAZAPINE 15 MG TABLET (FP) PO SCH (22:00)
[2017-05-09] MEDS: ATORVASTATIN CA 40 MG TABLET (FP) PO SCH (22:00)
[2017-05-09] MEDS: THIAMINE HCL 100 MG TABLET (FP) PO SCH (22:00)
[2017-05-09] MEDS: SENNOSIDES 8.6MG TABLET (FP) PO PRN (22:02)
[2017-05-09] MEDS: MELATONIN 5 MG TABLETS PO PRN (22:02)
[2017-05-10] MEDS: metFORMIN HCL 500 MG TABLET (FP) PO SCH ×2 (06:29→16:42)
[2017-05-10] MEDS: GABAPENTIN 400 MG CAPSULE (FP) PO SCH ×3 (06:29→21:32)
[2017-05-10] MEDS: dilTIAZem HCL 30 MG TABLET (FP) PO SCH (10:34)
[2017-05-10] MEDS: ESCITALOPRAM OXALATE 10 MG TABLET (FP) PO SCH (10:34)
[2017-05-10] MEDS: LISINOPRIL 20 MG TABLET (FP) PO SCH (10:34)
[2017-05-10] MEDS: PRENATAL VITAMINS W/ FOLIC ACID TABLET (FP) PO SCH (10:34)
[2017-05-10] MEDS: ASPIRIN 81 MG CHEWABLE TABLETS PO SCH (10:34)
[2017-05-10] MEDS: FINASTERIDE 5 MG TABLET (FP) PO SCH (10:35)
[2017-05-10] MEDS: NICOTINE 21 MG/24 HOURS TOPICAL PATCH TD SCH (10:35)
[2017-05-10] MEDS: MIRTAZAPINE 15 MG TABLET (FP) PO SCH (21:32)
[2017-05-10] MEDS: THIAMINE HCL 100 MG TABLET (FP) PO SCH (21:32)
[2017-05-10] MEDS: ATORVASTATIN CA 40 MG TABLET (FP) PO SCH (21:32)
[2017-05-10] MEDS: MELATONIN 5 MG TABLETS PO PRN (21:33)
[2017-05-10] MEDS: CYCLOBENZAPRINE HCL 10 MG TABLET (FP) PO PRN (21:34)
[2017-05-10] MEDS: diphenhydrAMINE HCL 50 MG CAPSULE PO PRN (21:34)
[2017-05-10] MEDS: SENNOSIDES 8.6MG TABLET (FP) PO PRN (21:48)
[2017-05-11] MEDS: CYCLOBENZAPRINE HCL 10 MG TABLET (FP) PO PRN ×3 (06:35→21:31)
[2017-05-11] MEDS: GABAPENTIN 400 MG CAPSULE (FP) PO SCH ×3 (06:35→21:31)
[2017-05-11] MEDS: metFORMIN HCL 500 MG TABLET (FP) PO SCH ×2 (06:35→16:56)
[2017-05-11] MEDS: NICOTINE 21 MG/24 HOURS TOPICAL PATCH TD SCH (10:34)
[2017-05-11] MEDS: ASPIRIN 81 MG CHEWABLE TABLETS PO SCH (10:35)
[2017-05-11] MEDS: LISINOPRIL 20 MG TABLET (FP) PO SCH (10:35)
[2017-05-11] MEDS: dilTIAZem HCL 30 MG TABLET (FP) PO SCH (10:35)
[2017-05-11] MEDS: ESCITALOPRAM OXALATE 10 MG TABLET (FP) PO SCH (10:35)
[2017-05-11] MEDS: FINASTERIDE 5 MG TABLET (FP) PO SCH (10:36)
[2017-05-11] MEDS: PRENATAL VITAMINS W/ FOLIC ACID TABLET (FP) PO SCH (10:45)
[2017-05-11] MEDS: THIAMINE HCL 100 MG TABLET (FP) PO SCH (21:31)
[2017-05-11] MEDS: diphenhydrAMINE HCL 50 MG CAPSULE PO PRN (21:31)
[2017-05-11] MEDS: MELATONIN 5 MG TABLETS PO PRN (21:32)
[2017-05-11] MEDS: MIRTAZAPINE 15 MG TABLET (FP) PO SCH (21:32)
[2017-05-11] MEDS: SENNOSIDES 8.6MG TABLET (FP) PO PRN (21:32)
[2017-05-11] MEDS: ATORVASTATIN CA 40 MG TABLET (FP) PO SCH (21:32)
[2017-05-12] MEDS: metFORMIN HCL 500 MG TABLET (FP) PO SCH ×2 (06:25→17:47)
[2017-05-12] MEDS: GABAPENTIN 400 MG CAPSULE (FP) PO SCH ×3 (06:25→21:45)
[2017-05-12] MEDS: CYCLOBENZAPRINE HCL 10 MG TABLET (FP) PO PRN ×3 (06:25→21:50)
[2017-05-12] MEDS: ASPIRIN 81 MG CHEWABLE TABLETS PO SCH (09:59)
[2017-05-12] MEDS: PRENATAL VITAMINS W/ FOLIC ACID TABLET (FP) PO SCH (09:59)
[2017-05-12] MEDS: ESCITALOPRAM OXALATE 10 MG TABLET (FP) PO SCH (10:00)
[2017-05-12] MEDS: LISINOPRIL 20 MG TABLET (FP) PO SCH (10:00)
[2017-05-12] MEDS: dilTIAZem HCL 30 MG TABLET (FP) PO SCH (10:01)
[2017-05-12] MEDS: NICOTINE 21 MG/24 HOURS TOPICAL PATCH TD SCH (10:01)
[2017-05-12] MEDS: FINASTERIDE 5 MG TABLET (FP) PO SCH (10:01)
[2017-05-12] MEDS: MIRTAZAPINE 15 MG TABLET (FP) PO SCH (21:45)
[2017-05-12] MEDS: diphenhydrAMINE HCL 50 MG CAPSULE PO PRN (21:45)
[2017-05-12] MEDS: THIAMINE HCL 100 MG TABLET (FP) PO SCH (21:45)
[2017-05-12] MEDS: ATORVASTATIN CA 40 MG TABLET (FP) PO SCH (21:45)
[2017-05-12] MEDS: MELATONIN 5 MG TABLETS PO PRN (21:50)
[2017-05-12] MEDS: SENNOSIDES 8.6MG TABLET (FP) PO PRN (21:50)
[2017-05-13] MEDS: CYCLOBENZAPRINE HCL 10 MG TABLET (FP) PO PRN ×3 (06:58→21:50)
[2017-05-13] MEDS: metFORMIN HCL 500 MG TABLET (FP) PO SCH ×2 (06:58→16:40)
[2017-05-13] MEDS: GABAPENTIN 400 MG CAPSULE (FP) PO SCH ×3 (06:58→21:47)
[2017-05-13] MEDS: PRENATAL VITAMINS W/ FOLIC ACID TABLET (FP) PO SCH (10:22)
[2017-05-13] MEDS: ESCITALOPRAM OXALATE 10 MG TABLET (FP) PO SCH (10:22)
[2017-05-13] MEDS: ASPIRIN 81 MG CHEWABLE TABLETS PO SCH (10:22)
[2017-05-13] MEDS: dilTIAZem HCL 30 MG TABLET (FP) PO SCH (10:23)
[2017-05-13] MEDS: LISINOPRIL 20 MG TABLET (FP) PO SCH (10:23)
[2017-05-13] MEDS: FINASTERIDE 5 MG TABLET (FP) PO SCH (10:24)
[2017-05-13] MEDS: NICOTINE 21 MG/24 HOURS TOPICAL PATCH TD SCH (10:25)
[2017-05-13] MEDS: MIRTAZAPINE 15 MG TABLET (FP) PO SCH (21:47)
[2017-05-13] MEDS: THIAMINE HCL 100 MG TABLET (FP) PO SCH (21:47)
[2017-05-13] MEDS: ATORVASTATIN CA 40 MG TABLET (FP) PO SCH (21:47)
[2017-05-13] MEDS: MELATONIN 5 MG TABLETS PO PRN (21:48)
[2017-05-13] MEDS: diphenhydrAMINE HCL 50 MG CAPSULE PO PRN (21:48)
[2017-05-13] MEDS: SENNOSIDES 8.6MG TABLET (FP) PO PRN (21:50)
[2017-05-14] MEDS: GABAPENTIN 400 MG CAPSULE (FP) PO SCH ×3 (06:30→21:48)
[2017-05-14] MEDS: CYCLOBENZAPRINE HCL 10 MG TABLET (FP) PO PRN ×3 (06:30→21:49)
[2017-05-14] MEDS: metFORMIN HCL 500 MG TABLET (FP) PO SCH ×2 (06:30→17:00)
[2017-05-14] MEDS: LISINOPRIL 20 MG TABLET (FP) PO SCH (10:46)
[2017-05-14] MEDS: ASPIRIN 81 MG CHEWABLE TABLETS PO SCH (10:46)
[2017-05-14] MEDS: dilTIAZem HCL 30 MG TABLET (FP) PO SCH (10:46)
[2017-05-14] MEDS: ESCITALOPRAM OXALATE 10 MG TABLET (FP) PO SCH (10:46)
[2017-05-14] MEDS: PRENATAL VITAMINS W/ FOLIC ACID TABLET (FP) PO SCH (10:48)
[2017-05-14] MEDS: FINASTERIDE 5 MG TABLET (FP) PO SCH (10:48)
[2017-05-14] MEDS: NICOTINE 21 MG/24 HOURS TOPICAL PATCH TD SCH (10:48)
[2017-05-14] MEDS: THIAMINE HCL 100 MG TABLET (FP) PO SCH (21:48)
[2017-05-14] MEDS: ATORVASTATIN CA 40 MG TABLET (FP) PO SCH (21:48)
[2017-05-14] MEDS: MIRTAZAPINE 15 MG TABLET (FP) PO SCH (21:48)
[2017-05-14] MEDS: MELATONIN 5 MG TABLETS PO PRN (21:49)
[2017-05-14] MEDS: SENNOSIDES 8.6MG TABLET (FP) PO PRN (21:49)
[2017-05-15] MEDS: CYCLOBENZAPRINE HCL 10 MG TABLET (FP) PO PRN ×2 (06:16→21:39)
[2017-05-15] MEDS: metFORMIN HCL 500 MG TABLET (FP) PO SCH ×2 (06:16→17:09)
[2017-05-15] MEDS: GABAPENTIN 400 MG CAPSULE (FP) PO SCH ×3 (06:16→21:39)
[2017-05-15] MEDS: ASPIRIN 81 MG CHEWABLE TABLETS PO SCH (10:46)
[2017-05-15] MEDS: ESCITALOPRAM OXALATE 10 MG TABLET (FP) PO SCH (10:47)
[2017-05-15] MEDS: dilTIAZem HCL 30 MG TABLET (FP) PO SCH (10:47)
[2017-05-15] MEDS: NICOTINE 21 MG/24 HOURS TOPICAL PATCH TD SCH (10:48)
[2017-05-15] MEDS: PRENATAL VITAMINS W/ FOLIC ACID TABLET (FP) PO SCH (10:49)
[2017-05-15] MEDS: FINASTERIDE 5 MG TABLET (FP) PO SCH (10:49)
[2017-05-15] MEDS: LISINOPRIL 20 MG TABLET (FP) PO SCH (10:49)
[2017-05-15] MEDS: ATORVASTATIN CA 40 MG TABLET (FP) PO SCH (21:38)
[2017-05-15] MEDS: THIAMINE HCL 100 MG TABLET (FP) PO SCH (21:38)
[2017-05-15] MEDS: MIRTAZAPINE 15 MG TABLET (FP) PO SCH (21:39)
[2017-05-15] MEDS: SENNOSIDES 8.6MG TABLET (FP) PO PRN (21:39)
[2017-05-15] MEDS: diphenhydrAMINE HCL 50 MG CAPSULE PO PRN (21:39)
[2017-05-15] MEDS: MELATONIN 5 MG TABLETS PO PRN (21:39)
[2017-05-16] MEDS: metFORMIN HCL 500 MG TABLET (FP) PO SCH ×2 (06:33→17:15)
[2017-05-16] MEDS: GABAPENTIN 400 MG CAPSULE (FP) PO SCH ×3 (06:33→21:48)
[2017-05-16] MEDS: CYCLOBENZAPRINE HCL 10 MG TABLET (FP) PO PRN ×3 (06:34→21:48)
[2017-05-16] MEDS: PRENATAL VITAMINS W/ FOLIC ACID TABLET (FP) PO SCH (10:17)
[2017-05-16] MEDS: dilTIAZem HCL 30 MG TABLET (FP) PO SCH (10:17)
[2017-05-16] MEDS: LISINOPRIL 20 MG TABLET (FP) PO SCH (10:17)
[2017-05-16] MEDS: FINASTERIDE 5 MG TABLET (FP) PO SCH (10:18)
[2017-05-16] MEDS: NICOTINE 21 MG/24 HOURS TOPICAL PATCH TD SCH (10:18)
[2017-05-16] MEDS: ASPIRIN 81 MG CHEWABLE TABLETS PO SCH (10:18)
[2017-05-16] MEDS: ESCITALOPRAM OXALATE 10 MG TABLET (FP) PO SCH (10:19)
[2017-05-16] MEDS: ATORVASTATIN CA 40 MG TABLET (FP) PO SCH (21:46)
[2017-05-16] MEDS: MIRTAZAPINE 15 MG TABLET (FP) PO SCH (21:46)
[2017-05-16] MEDS: THIAMINE HCL 100 MG TABLET (FP) PO SCH (21:47)
[2017-05-16] MEDS: MELATONIN 5 MG TABLETS PO PRN (21:48)
[2017-05-16] MEDS: diphenhydrAMINE HCL 50 MG CAPSULE PO PRN (21:49)
[2017-05-16] MEDS: SENNOSIDES 8.6MG TABLET (FP) PO PRN (21:50)
[2017-05-17] MEDS: metFORMIN HCL 500 MG TABLET (FP) PO SCH ×2 (06:18→16:59)
[2017-05-17] MEDS: CYCLOBENZAPRINE HCL 10 MG TABLET (FP) PO PRN ×2 (06:18→21:48)
[2017-05-17] MEDS: GABAPENTIN 400 MG CAPSULE (FP) PO SCH ×3 (06:18→21:44)
[2017-05-17] MEDS: LISINOPRIL 20 MG TABLET (FP) PO SCH (10:30)
[2017-05-17] MEDS: ASPIRIN 81 MG CHEWABLE TABLETS PO SCH (10:30)
[2017-05-17] MEDS: PRENATAL VITAMINS W/ FOLIC ACID TABLET (FP) PO SCH (10:30)
[2017-05-17] MEDS: dilTIAZem HCL 30 MG TABLET (FP) PO SCH (10:31)
[2017-05-17] MEDS: ESCITALOPRAM OXALATE 10 MG TABLET (FP) PO SCH (10:31)
[2017-05-17] MEDS: FINASTERIDE 5 MG TABLET (FP) PO SCH (10:32)
[2017-05-17] MEDS: NICOTINE 21 MG/24 HOURS TOPICAL PATCH TD SCH (10:32)
[2017-05-17] MEDS: diphenhydrAMINE HCL 50 MG CAPSULE PO PRN (21:44)
[2017-05-17] MEDS: ATORVASTATIN CA 40 MG TABLET (FP) PO SCH (21:44)
[2017-05-17] MEDS: THIAMINE HCL 100 MG TABLET (FP) PO SCH (21:44)
[2017-05-17] MEDS: MIRTAZAPINE 15 MG TABLET (FP) PO SCH (21:45)
[2017-05-17] MEDS ORDERED: PT OWN MED DRAWER 7, Y5N ONE (21:46)
[2017-05-17] MEDS: MELATONIN 5 MG TABLETS PO PRN (21:47)
[2017-05-17] MEDS: SENNOSIDES 8.6MG TABLET (FP) PO PRN (21:48)
[2017-05-18] MEDS: metFORMIN HCL 500 MG TABLET (FP) PO SCH ×2 (06:43→17:16)
[2017-05-18] MEDS: CYCLOBENZAPRINE HCL 10 MG TABLET (FP) PO PRN ×3 (06:43→21:41)
[2017-05-18] MEDS: GABAPENTIN 400 MG CAPSULE (FP) PO SCH ×3 (06:43→21:40)
[2017-05-18] MEDS: NICOTINE 21 MG/24 HOURS TOPICAL PATCH TD SCH (10:39)
[2017-05-18] MEDS: LISINOPRIL 20 MG TABLET (FP) PO SCH (10:41)
[2017-05-18] MEDS: PRENATAL VITAMINS W/ FOLIC ACID TABLET (FP) PO SCH (10:41)
[2017-05-18] MEDS: dilTIAZem HCL 30 MG TABLET (FP) PO SCH (10:41)
[2017-05-18] MEDS: ESCITALOPRAM OXALATE 10 MG TABLET (FP) PO SCH (10:41)
[2017-05-18] MEDS: ASPIRIN 81 MG CHEWABLE TABLETS PO SCH (10:41)
[2017-05-18] MEDS: FINASTERIDE 5 MG TABLET (FP) PO SCH (10:42)
[2017-05-18] MEDS: THIAMINE HCL 100 MG TABLET (FP) PO SCH (21:40)
[2017-05-18] MEDS: MIRTAZAPINE 15 MG TABLET (FP) PO SCH (21:40)
[2017-05-18] MEDS: ATORVASTATIN CA 40 MG TABLET (FP) PO SCH (21:40)
[2017-05-18] MEDS: diphenhydrAMINE HCL 50 MG CAPSULE PO PRN (21:41)
[2017-05-18] MEDS: SENNOSIDES 8.6MG TABLET (FP) PO PRN (21:41)
[2017-05-18] MEDS: MELATONIN 5 MG TABLETS PO PRN (21:41)
[2017-05-19] MEDS: metFORMIN HCL 500 MG TABLET (FP) PO SCH ×2 (06:53→17:03)
[2017-05-19] MEDS: GABAPENTIN 400 MG CAPSULE (FP) PO SCH ×3 (06:53→21:37)
[2017-05-19] MEDS: CYCLOBENZAPRINE HCL 10 MG TABLET (FP) PO PRN ×3 (06:54→21:37)
[2017-05-19] MEDS: ASPIRIN 81 MG CHEWABLE TABLETS PO SCH (10:23)
[2017-05-19] MEDS: ESCITALOPRAM OXALATE 10 MG TABLET (FP) PO SCH (10:24)
[2017-05-19] MEDS: LISINOPRIL 20 MG TABLET (FP) PO SCH (10:24)
[2017-05-19] MEDS: dilTIAZem HCL 30 MG TABLET (FP) PO SCH (10:24)
[2017-05-19] MEDS: FINASTERIDE 5 MG TABLET (FP) PO SCH (10:25)
[2017-05-19] MEDS: PRENATAL VITAMINS W/ FOLIC ACID TABLET (FP) PO SCH (10:25)
[2017-05-19] MEDS: NICOTINE 21 MG/24 HOURS TOPICAL PATCH TD SCH (10:25)
[2017-05-19] MEDS: SENNOSIDES 8.6MG TABLET (FP) PO PRN (21:37)
[2017-05-19] MEDS: ATORVASTATIN CA 40 MG TABLET (FP) PO SCH (21:37)
[2017-05-19] MEDS: MIRTAZAPINE 15 MG TABLET (FP) PO SCH (21:37)
[2017-05-19] MEDS: MELATONIN 5 MG TABLETS PO PRN (21:37)
[2017-05-19] MEDS: THIAMINE HCL 100 MG TABLET (FP) PO SCH (21:37)
[2017-05-19] MEDS: diphenhydrAMINE HCL 50 MG CAPSULE PO PRN (21:38)
[2017-05-20] MEDS: GABAPENTIN 400 MG CAPSULE (FP) PO SCH ×3 (06:40→21:31)
[2017-05-20] MEDS: metFORMIN HCL 500 MG TABLET (FP) PO SCH ×2 (06:40→16:52)
[2017-05-20] MEDS: CYCLOBENZAPRINE HCL 10 MG TABLET (FP) PO PRN ×3 (06:41→21:31)
[2017-05-20] MEDS: ASPIRIN 81 MG CHEWABLE TABLETS PO SCH (10:26)
[2017-05-20] MEDS: dilTIAZem HCL 30 MG TABLET (FP) PO SCH (10:26)
[2017-05-20] MEDS: LISINOPRIL 20 MG TABLET (FP) PO SCH (10:26)
[2017-05-20] MEDS: FINASTERIDE 5 MG TABLET (FP) PO SCH (10:26)
[2017-05-20] MEDS: PRENATAL VITAMINS W/ FOLIC ACID TABLET (FP) PO SCH (10:26)
[2017-05-20] MEDS: ESCITALOPRAM OXALATE 10 MG TABLET (FP) PO SCH (10:26)
[2017-05-20] MEDS: NICOTINE 21 MG/24 HOURS TOPICAL PATCH TD SCH (10:27)
[2017-05-20] MEDS: ATORVASTATIN CA 40 MG TABLET (FP) PO SCH (21:31)
[2017-05-20] MEDS: THIAMINE HCL 100 MG TABLET (FP) PO SCH (21:31)
[2017-05-20] MEDS: diphenhydrAMINE HCL 50 MG CAPSULE PO PRN (21:31)
[2017-05-20] MEDS: MELATONIN 5 MG TABLETS PO PRN (21:31)
[2017-05-20] MEDS: SENNOSIDES 8.6MG TABLET (FP) PO PRN (21:31)
[2017-05-20] MEDS: MIRTAZAPINE 15 MG TABLET (FP) PO SCH (21:31)
[2017-05-21] MEDS: GABAPENTIN 400 MG CAPSULE (FP) PO SCH ×3 (06:41→21:50)
[2017-05-21] MEDS: metFORMIN HCL 500 MG TABLET (FP) PO SCH ×2 (06:41→16:40)
[2017-05-21] MEDS: CYCLOBENZAPRINE HCL 10 MG TABLET (FP) PO PRN ×3 (06:41→21:54)
[2017-05-21] MEDS: FINASTERIDE 5 MG TABLET (FP) PO SCH (10:20)
[2017-05-21] MEDS: LISINOPRIL 20 MG TABLET (FP) PO SCH (10:20)
[2017-05-21] MEDS: ASPIRIN 81 MG CHEWABLE TABLETS PO SCH (10:20)
[2017-05-21] MEDS: dilTIAZem HCL 30 MG TABLET (FP) PO SCH (10:20)
[2017-05-21] MEDS: ESCITALOPRAM OXALATE 10 MG TABLET (FP) PO SCH (10:21)
[2017-05-21] MEDS: PRENATAL VITAMINS W/ FOLIC ACID TABLET (FP) PO SCH (10:21)
[2017-05-21] MEDS: ACETAMINOPHEN 325 MG TABLET (FP) PO PRN (10:22)
[2017-05-21] MEDS: NICOTINE 21 MG/24 HOURS TOPICAL PATCH TD SCH (10:22)
[2017-05-21] MEDS: THIAMINE HCL 100 MG TABLET (FP) PO SCH (21:50)
[2017-05-21] MEDS: MIRTAZAPINE 15 MG TABLET (FP) PO SCH (21:50)
[2017-05-21] MEDS: ATORVASTATIN CA 40 MG TABLET (FP) PO SCH (21:51)
[2017-05-21] MEDS: diphenhydrAMINE HCL 50 MG CAPSULE PO PRN (21:51)
[2017-05-21] MEDS: MELATONIN 5 MG TABLETS PO PRN (21:52)
[2017-05-21] MEDS: SENNOSIDES 8.6MG TABLET (FP) PO PRN (21:54)
[2017-05-22] MEDS: GABAPENTIN 400 MG CAPSULE (FP) PO SCH ×3 (06:18→21:43)
[2017-05-22] MEDS: CYCLOBENZAPRINE HCL 10 MG TABLET (FP) PO PRN ×3 (06:18→21:45)
[2017-05-22] MEDS: metFORMIN HCL 500 MG TABLET (FP) PO SCH ×2 (06:18→16:36)
[2017-05-22] MEDS: PRENATAL VITAMINS W/ FOLIC ACID TABLET (FP) PO SCH (10:45)
[2017-05-22] MEDS: ESCITALOPRAM OXALATE 10 MG TABLET (FP) PO SCH (10:45)
[2017-05-22] MEDS: ASPIRIN 81 MG CHEWABLE TABLETS PO SCH (10:45)
[2017-05-22] MEDS: FINASTERIDE 5 MG TABLET (FP) PO SCH (10:45)
[2017-05-22] MEDS: LISINOPRIL 20 MG TABLET (FP) PO SCH (10:46)
[2017-05-22] MEDS: dilTIAZem HCL 30 MG TABLET (FP) PO SCH (10:46)
[2017-05-22] MEDS: NICOTINE 21 MG/24 HOURS TOPICAL PATCH TD SCH (10:46)
[2017-05-22] MEDS: THIAMINE HCL 100 MG TABLET (FP) PO SCH (21:42)
[2017-05-22] MEDS: MIRTAZAPINE 15 MG TABLET (FP) PO SCH (21:43)
[2017-05-22] MEDS: ATORVASTATIN CA 40 MG TABLET (FP) PO SCH (21:43)
[2017-05-22] MEDS: MELATONIN 5 MG TABLETS PO PRN (21:45)
[2017-05-22] MEDS: SENNOSIDES 8.6MG TABLET (FP) PO PRN (21:45)
[2017-05-22] MEDS: diphenhydrAMINE HCL 50 MG CAPSULE PO PRN (21:45)
[2017-05-23] MEDS: metFORMIN HCL 500 MG TABLET (FP) PO SCH ×2 (06:16→16:39)
[2017-05-23] MEDS: GABAPENTIN 400 MG CAPSULE (FP) PO SCH ×3 (06:16→21:46)
[2017-05-23] MEDS: CYCLOBENZAPRINE HCL 10 MG TABLET (FP) PO PRN ×3 (06:18→21:48)
[2017-05-23] MEDS: FINASTERIDE 5 MG TABLET (FP) PO SCH (10:24)
[2017-05-23] MEDS: PRENATAL VITAMINS W/ FOLIC ACID TABLET (FP) PO SCH (10:24)
[2017-05-23] MEDS: ASPIRIN 81 MG CHEWABLE TABLETS PO SCH (10:24)
[2017-05-23] MEDS: ESCITALOPRAM OXALATE 10 MG TABLET (FP) PO SCH (10:25)
[2017-05-23] MEDS: LISINOPRIL 20 MG TABLET (FP) PO SCH (10:25)
[2017-05-23] MEDS: dilTIAZem HCL 30 MG TABLET (FP) PO SCH (10:25)
[2017-05-23] MEDS: NICOTINE 21 MG/24 HOURS TOPICAL PATCH TD SCH (10:25)
[2017-05-23] MEDS: THIAMINE HCL 100 MG TABLET (FP) PO SCH (21:46)
[2017-05-23] MEDS: ATORVASTATIN CA 40 MG TABLET (FP) PO SCH (21:46)
[2017-05-23] MEDS: MELATONIN 5 MG TABLETS PO PRN (21:47)
[2017-05-23] MEDS: MIRTAZAPINE 15 MG TABLET (FP) PO SCH (21:47)
[2017-05-23] MEDS: SENNOSIDES 8.6MG TABLET (FP) PO PRN (21:48)
[2017-05-23] MEDS: diphenhydrAMINE HCL 50 MG CAPSULE PO PRN (21:49)
[2017-05-24] MEDS: GABAPENTIN 400 MG CAPSULE (FP) PO SCH ×3 (06:36→21:49)
[2017-05-24] MEDS: CYCLOBENZAPRINE HCL 10 MG TABLET (FP) PO PRN ×3 (06:36→21:51)
[2017-05-24] MEDS: metFORMIN HCL 500 MG TABLET (FP) PO SCH ×2 (06:38→16:41)
[2017-05-24] MEDS: NICOTINE 21 MG/24 HOURS TOPICAL PATCH TD SCH (10:36)
[2017-05-24] MEDS: ESCITALOPRAM OXALATE 10 MG TABLET (FP) PO SCH (10:36)
[2017-05-24] MEDS: LISINOPRIL 20 MG TABLET (FP) PO SCH (10:36)
[2017-05-24] MEDS: ASPIRIN 81 MG CHEWABLE TABLETS PO SCH (10:38)
[2017-05-24] MEDS: PRENATAL VITAMINS W/ FOLIC ACID TABLET (FP) PO SCH (10:38)
[2017-05-24] MEDS: dilTIAZem HCL 30 MG TABLET (FP) PO SCH (10:38)
[2017-05-24] MEDS: FINASTERIDE 5 MG TABLET (FP) PO SCH (10:39)
[2017-05-24] MEDS: THIAMINE HCL 100 MG TABLET (FP) PO SCH (21:48)
[2017-05-24] MEDS: ATORVASTATIN CA 40 MG TABLET (FP) PO SCH (21:49)
[2017-05-24] MEDS: MIRTAZAPINE 15 MG TABLET (FP) PO SCH (21:49)
[2017-05-24] MEDS: MELATONIN 5 MG TABLETS PO PRN (21:50)
[2017-05-25] MEDS: CYCLOBENZAPRINE HCL 10 MG TABLET (FP) PO PRN ×3 (06:20→21:45)
[2017-05-25] MEDS: GABAPENTIN 400 MG CAPSULE (FP) PO SCH ×3 (06:21→21:44)
[2017-05-25] MEDS: metFORMIN HCL 500 MG TABLET (FP) PO SCH ×2 (07:04→16:35)
[2017-05-25] MEDS ORDERED: PT OWN MED DRAWER 7, Y5N ONE (08:41)
[2017-05-25] MEDS: ESCITALOPRAM OXALATE 10 MG TABLET (FP) PO SCH (10:33)
[2017-05-25] MEDS: dilTIAZem HCL 30 MG TABLET (FP) PO SCH (10:33)
[2017-05-25] MEDS: FINASTERIDE 5 MG TABLET (FP) PO SCH (10:33)
[2017-05-25] MEDS: NICOTINE 21 MG/24 HOURS TOPICAL PATCH TD SCH (10:34)
[2017-05-25] MEDS: ASPIRIN 81 MG CHEWABLE TABLETS PO SCH (10:34)
[2017-05-25] MEDS: PRENATAL VITAMINS W/ FOLIC ACID TABLET (FP) PO SCH (10:34)
[2017-05-25] MEDS: LISINOPRIL 20 MG TABLET (FP) PO SCH (10:34)
[2017-05-25] MEDS: THIAMINE HCL 100 MG TABLET (FP) PO SCH (21:44)
[2017-05-25] MEDS: ATORVASTATIN CA 40 MG TABLET (FP) PO SCH (21:44)
[2017-05-25] MEDS: diphenhydrAMINE HCL 50 MG CAPSULE PO PRN (21:45)
[2017-05-25] MEDS: MIRTAZAPINE 15 MG TABLET (FP) PO SCH (21:45)
[2017-05-25] MEDS: MELATONIN 5 MG TABLETS PO PRN (21:45)
[2017-05-25] MEDS: SENNOSIDES 8.6MG TABLET (FP) PO PRN (21:45)
[2017-05-26] MEDS: GABAPENTIN 400 MG CAPSULE (FP) PO SCH ×3 (06:19→21:45)
[2017-05-26] MEDS: CYCLOBENZAPRINE HCL 10 MG TABLET (FP) PO PRN ×3 (06:19→21:47)
[2017-05-26] MEDS: metFORMIN HCL 500 MG TABLET (FP) PO SCH ×2 (06:19→16:38)
[2017-05-26] MEDS: FINASTERIDE 5 MG TABLET (FP) PO SCH (10:31)
[2017-05-26] MEDS: ESCITALOPRAM OXALATE 10 MG TABLET (FP) PO SCH (10:32)
[2017-05-26] MEDS: PRENATAL VITAMINS W/ FOLIC ACID TABLET (FP) PO SCH (10:33)
[2017-05-26] MEDS: ASPIRIN 81 MG CHEWABLE TABLETS PO SCH (10:33)
[2017-05-26] MEDS: LISINOPRIL 20 MG TABLET (FP) PO SCH (10:33)
[2017-05-26] MEDS: dilTIAZem HCL 30 MG TABLET (FP) PO SCH (10:33)
[2017-05-26] MEDS: NICOTINE 21 MG/24 HOURS TOPICAL PATCH TD SCH (10:33)
[2017-05-26] MEDS: ATORVASTATIN CA 40 MG TABLET (FP) PO SCH (21:45)
[2017-05-26] MEDS: MIRTAZAPINE 15 MG TABLET (FP) PO SCH (21:45)
[2017-05-26] MEDS: THIAMINE HCL 100 MG TABLET (FP) PO SCH (21:45)
[2017-05-26] MEDS: MELATONIN 5 MG TABLETS PO PRN (21:46)
[2017-05-26] MEDS: diphenhydrAMINE HCL 50 MG CAPSULE PO PRN (21:47)
[2017-05-27] MEDS: metFORMIN HCL 500 MG TABLET (FP) PO SCH ×2 (06:21→16:35)
[2017-05-27] MEDS: GABAPENTIN 400 MG CAPSULE (FP) PO SCH ×3 (06:21→21:44)
[2017-05-27] MEDS: CYCLOBENZAPRINE HCL 10 MG TABLET (FP) PO PRN ×3 (06:21→21:46)
[2017-05-27] MEDS: ASPIRIN 81 MG CHEWABLE TABLETS PO SCH (10:12)
[2017-05-27] MEDS: LISINOPRIL 20 MG TABLET (FP) PO SCH (10:12)
[2017-05-27] MEDS: ESCITALOPRAM OXALATE 10 MG TABLET (FP) PO SCH (10:12)
[2017-05-27] MEDS: PRENATAL VITAMINS W/ FOLIC ACID TABLET (FP) PO SCH (10:12)
[2017-05-27] MEDS: dilTIAZem HCL 30 MG TABLET (FP) PO SCH (10:12)
[2017-05-27] MEDS: FINASTERIDE 5 MG TABLET (FP) PO SCH (10:13)
[2017-05-27] MEDS: NICOTINE 21 MG/24 HOURS TOPICAL PATCH TD SCH (10:13)
[2017-05-27] MEDS: MIRTAZAPINE 15 MG TABLET (FP) PO SCH (21:44)
[2017-05-27] MEDS: ATORVASTATIN CA 40 MG TABLET (FP) PO SCH (21:44)
[2017-05-27] MEDS: THIAMINE HCL 100 MG TABLET (FP) PO SCH (21:44)
[2017-05-27] MEDS: MELATONIN 5 MG TABLETS PO PRN (21:45)
[2017-05-27] MEDS: SENNOSIDES 8.6MG TABLET (FP) PO PRN (21:46)
[2017-05-28] MEDS: GABAPENTIN 400 MG CAPSULE (FP) PO SCH ×3 (06:46→21:56)
[2017-05-28] MEDS: CYCLOBENZAPRINE HCL 10 MG TABLET (FP) PO PRN ×3 (06:46→21:58)
[2017-05-28] MEDS: metFORMIN HCL 500 MG TABLET (FP) PO SCH ×2 (06:46→16:37)
[2017-05-28] MEDS: PRENATAL VITAMINS W/ FOLIC ACID TABLET (FP) PO SCH (10:54)
[2017-05-28] MEDS: ASPIRIN 81 MG CHEWABLE TABLETS PO SCH (10:54)
[2017-05-28] MEDS: dilTIAZem HCL 30 MG TABLET (FP) PO SCH (10:54)
[2017-05-28] MEDS: ESCITALOPRAM OXALATE 10 MG TABLET (FP) PO SCH (10:54)
[2017-05-28] MEDS: FINASTERIDE 5 MG TABLET (FP) PO SCH (10:54)
[2017-05-28] MEDS: NICOTINE 21 MG/24 HOURS TOPICAL PATCH TD SCH (10:55)
[2017-05-28] MEDS: LISINOPRIL 20 MG TABLET (FP) PO SCH (10:55)
[2017-05-28] MEDS: ATORVASTATIN CA 40 MG TABLET (FP) PO SCH (21:56)
[2017-05-28] MEDS: MIRTAZAPINE 15 MG TABLET (FP) PO SCH (21:56)
[2017-05-28] MEDS: MELATONIN 5 MG TABLETS PO PRN (21:57)
[2017-05-28] MEDS: THIAMINE HCL 100 MG TABLET (FP) PO SCH (21:58)
[2017-05-28] MEDS: SENNOSIDES 8.6MG TABLET (FP) PO PRN (21:58)
[2017-05-29] MEDS: metFORMIN HCL 500 MG TABLET (FP) PO SCH ×2 (06:40→16:38)
[2017-05-29] MEDS: CYCLOBENZAPRINE HCL 10 MG TABLET (FP) PO PRN ×3 (06:40→21:43)
[2017-05-29] MEDS: GABAPENTIN 400 MG CAPSULE (FP) PO SCH ×3 (06:40→21:42)
[2017-05-29] MEDS: FINASTERIDE 5 MG TABLET (FP) PO SCH (09:01)
[2017-05-29] MEDS: ASPIRIN 81 MG CHEWABLE TABLETS PO SCH (09:01)
[2017-05-29] MEDS: PRENATAL VITAMINS W/ FOLIC ACID TABLET (FP) PO SCH (09:02)
[2017-05-29] MEDS: NICOTINE 21 MG/24 HOURS TOPICAL PATCH TD SCH (09:02)
[2017-05-29] MEDS: LISINOPRIL 20 MG TABLET (FP) PO SCH (09:02)
[2017-05-29] MEDS: dilTIAZem HCL 30 MG TABLET (FP) PO SCH (09:02)
[2017-05-29] MEDS: ESCITALOPRAM OXALATE 10 MG TABLET (FP) PO SCH (09:02)
[2017-05-29] MEDS: ACETAMINOPHEN 325 MG TABLET (FP) PO PRN (09:03)
[2017-05-29] MEDS: THIAMINE HCL 100 MG TABLET (FP) PO SCH (21:41)
[2017-05-29] MEDS: ATORVASTATIN CA 40 MG TABLET (FP) PO SCH (21:42)
[2017-05-29] MEDS: MIRTAZAPINE 15 MG TABLET (FP) PO SCH (21:42)
[2017-05-29] MEDS: SENNOSIDES 8.6MG TABLET (FP) PO PRN (21:43)
[2017-05-29] MEDS: MELATONIN 5 MG TABLETS PO PRN (21:43)
[2017-05-30] MEDS: GABAPENTIN 400 MG CAPSULE (FP) PO SCH ×3 (06:45→21:39)
[2017-05-30] MEDS: CYCLOBENZAPRINE HCL 10 MG TABLET (FP) PO PRN ×3 (06:45→21:39)
[2017-05-30] MEDS: metFORMIN HCL 500 MG TABLET (FP) PO SCH ×2 (06:45→16:38)
[2017-05-30] MEDS: PRENATAL VITAMINS W/ FOLIC ACID TABLET (FP) PO SCH (10:32)
[2017-05-30] MEDS: FINASTERIDE 5 MG TABLET (FP) PO SCH (10:32)
[2017-05-30] MEDS: dilTIAZem HCL 30 MG TABLET (FP) PO SCH (10:32)
[2017-05-30] MEDS: LISINOPRIL 20 MG TABLET (FP) PO SCH (10:32)
[2017-05-30] MEDS: NICOTINE 21 MG/24 HOURS TOPICAL PATCH TD SCH (10:32)
[2017-05-30] MEDS: ESCITALOPRAM OXALATE 10 MG TABLET (FP) PO SCH (10:32)
[2017-05-30] MEDS: ASPIRIN 81 MG CHEWABLE TABLETS PO SCH (10:32)
[2017-05-30] MEDS: ATORVASTATIN CA 40 MG TABLET (FP) PO SCH (21:39)
[2017-05-30] MEDS: THIAMINE HCL 100 MG TABLET (FP) PO SCH (21:39)
[2017-05-30] MEDS: SENNOSIDES 8.6MG TABLET (FP) PO PRN (21:39)
[2017-05-30] MEDS: MELATONIN 5 MG TABLETS PO PRN (21:40)
[2017-05-30] MEDS: MIRTAZAPINE 15 MG TABLET (FP) PO SCH (21:40)
[2017-05-31] MEDS: GABAPENTIN 400 MG CAPSULE (FP) PO SCH ×3 (06:35→21:26)
[2017-05-31] MEDS: CYCLOBENZAPRINE HCL 10 MG TABLET (FP) PO PRN ×3 (06:35→21:29)
[2017-05-31] MEDS: metFORMIN HCL 500 MG TABLET (FP) PO SCH ×2 (06:35→16:57)
[2017-05-31] MEDS: ASPIRIN 81 MG CHEWABLE TABLETS PO SCH (11:03)
[2017-05-31] MEDS: dilTIAZem HCL 30 MG TABLET (FP) PO SCH (11:03)
[2017-05-31] MEDS: LISINOPRIL 20 MG TABLET (FP) PO SCH (11:03)
[2017-05-31] MEDS: FINASTERIDE 5 MG TABLET (FP) PO SCH (11:04)
[2017-05-31] MEDS: PRENATAL VITAMINS W/ FOLIC ACID TABLET (FP) PO SCH (11:04)
[2017-05-31] MEDS: NICOTINE 21 MG/24 HOURS TOPICAL PATCH TD SCH (11:04)
[2017-05-31] MEDS: ESCITALOPRAM OXALATE 10 MG TABLET (FP) PO SCH (11:04)
[2017-05-31] MEDS: THIAMINE HCL 100 MG TABLET (FP) PO SCH (21:26)
[2017-05-31] MEDS: MIRTAZAPINE 15 MG TABLET (FP) PO SCH (21:26)
[2017-05-31] MEDS: SENNOSIDES 8.6MG TABLET (FP) PO PRN (21:29)
[2017-05-31] MEDS: MELATONIN 5 MG TABLETS PO PRN (21:29)
[2017-05-31] MEDS: ATORVASTATIN CA 40 MG TABLET (FP) PO SCH (23:19)
[2017-06-01] MEDS: CYCLOBENZAPRINE HCL 10 MG TABLET (FP) PO PRN ×3 (06:23→21:42)
[2017-06-01] MEDS: GABAPENTIN 400 MG CAPSULE (FP) PO SCH ×3 (06:23→21:40)
[2017-06-01] MEDS: metFORMIN HCL 500 MG TABLET (FP) PO SCH ×2 (06:23→16:42)
[2017-06-01] MEDS: PRENATAL VITAMINS W/ FOLIC ACID TABLET (FP) PO SCH (10:19)
[2017-06-01] MEDS: dilTIAZem HCL 30 MG TABLET (FP) PO SCH (10:19)
[2017-06-01] MEDS: ESCITALOPRAM OXALATE 10 MG TABLET (FP) PO SCH (10:19)
[2017-06-01] MEDS: FINASTERIDE 5 MG TABLET (FP) PO SCH (10:19)
[2017-06-01] MEDS: ASPIRIN 81 MG CHEWABLE TABLETS PO SCH (10:19)
[2017-06-01] MEDS: LISINOPRIL 20 MG TABLET (FP) PO SCH (10:19)
[2017-06-01] MEDS: NICOTINE 21 MG/24 HOURS TOPICAL PATCH TD SCH (10:20)
[2017-06-01] MEDS: ATORVASTATIN CA 40 MG TABLET (FP) PO SCH (21:40)
[2017-06-01] MEDS: MIRTAZAPINE 15 MG TABLET (FP) PO SCH (21:40)
[2017-06-01] MEDS: THIAMINE HCL 100 MG TABLET (FP) PO SCH (21:40)
[2017-06-01] MEDS: MELATONIN 5 MG TABLETS PO PRN (21:41)
[2017-06-01] MEDS: SENNOSIDES 8.6MG TABLET (FP) PO PRN (21:42)
[2017-06-02] MEDS: metFORMIN HCL 500 MG TABLET (FP) PO SCH ×2 (06:42→16:47)
[2017-06-02] MEDS: GABAPENTIN 400 MG CAPSULE (FP) PO SCH ×3 (06:42→21:51)
[2017-06-02] MEDS: CYCLOBENZAPRINE HCL 10 MG TABLET (FP) PO PRN ×3 (06:43→21:51)
[2017-06-02] MEDS: PRENATAL VITAMINS W/ FOLIC ACID TABLET (FP) PO SCH (10:18)
[2017-06-02] MEDS: ASPIRIN 81 MG CHEWABLE TABLETS PO SCH (10:18)
[2017-06-02] MEDS: LISINOPRIL 20 MG TABLET (FP) PO SCH (10:18)
[2017-06-02] MEDS: dilTIAZem HCL 30 MG TABLET (FP) PO SCH (10:18)
[2017-06-02] MEDS: FINASTERIDE 5 MG TABLET (FP) PO SCH (10:18)
[2017-06-02] MEDS: ESCITALOPRAM OXALATE 10 MG TABLET (FP) PO SCH (10:18)
[2017-06-02] MEDS: NICOTINE 21 MG/24 HOURS TOPICAL PATCH TD SCH (10:20)
[2017-06-02] MEDS: ATORVASTATIN CA 40 MG TABLET (FP) PO SCH (21:50)
[2017-06-02] MEDS: THIAMINE HCL 100 MG TABLET (FP) PO SCH (21:50)
[2017-06-02] MEDS: MIRTAZAPINE 15 MG TABLET (FP) PO SCH (21:51)
[2017-06-02] MEDS: MELATONIN 5 MG TABLETS PO PRN (21:52)
[2017-06-02] MEDS: SENNOSIDES 8.6MG TABLET (FP) PO PRN (21:54)
[2017-06-03] MEDS ORDERED: BENZOCAINE 28 GM HEMORRHOIDAL OINTMENT PR PRN (06:43)
[2017-06-03] MEDS: metFORMIN HCL 500 MG TABLET (FP) PO SCH ×2 (06:47→16:41)
[2017-06-03] MEDS: CYCLOBENZAPRINE HCL 10 MG TABLET (FP) PO PRN ×3 (06:48→22:16)
[2017-06-03] MEDS: GABAPENTIN 400 MG CAPSULE (FP) PO SCH ×3 (06:48→21:39)
[2017-06-03] MEDS: LISINOPRIL 20 MG TABLET (FP) PO SCH (10:51)
[2017-06-03] MEDS: ASPIRIN 81 MG CHEWABLE TABLETS PO SCH (10:51)
[2017-06-03] MEDS: ESCITALOPRAM OXALATE 10 MG TABLET (FP) PO SCH (10:52)
[2017-06-03] MEDS: FINASTERIDE 5 MG TABLET (FP) PO SCH (10:53)
[2017-06-03] MEDS: NICOTINE 21 MG/24 HOURS TOPICAL PATCH TD SCH (10:53)
[2017-06-03] MEDS: PRENATAL VITAMINS W/ FOLIC ACID TABLET (FP) PO SCH (10:53)
[2017-06-03] MEDS: dilTIAZem HCL 30 MG TABLET (FP) PO SCH (10:57)
[2017-06-03] MEDS: MIRTAZAPINE 15 MG TABLET (FP) PO SCH (21:38)
[2017-06-03] MEDS: MELATONIN 5 MG TABLETS PO PRN (21:38)
[2017-06-03] MEDS: THIAMINE HCL 100 MG TABLET (FP) PO SCH (21:39)
[2017-06-03] MEDS: ATORVASTATIN CA 40 MG TABLET (FP) PO SCH (21:39)
[2017-06-03] MEDS: SENNOSIDES 8.6MG TABLET (FP) PO PRN (22:16)
[2017-06-04] MEDS: GABAPENTIN 400 MG CAPSULE (FP) PO SCH ×3 (06:28→21:39)
[2017-06-04] MEDS: metFORMIN HCL 500 MG TABLET (FP) PO SCH ×2 (06:28→16:41)
[2017-06-04] MEDS: CYCLOBENZAPRINE HCL 10 MG TABLET (FP) PO PRN ×3 (06:28→21:41)
[2017-06-04] MEDS: dilTIAZem HCL 30 MG TABLET (FP) PO SCH (10:33)
[2017-06-04] MEDS: LISINOPRIL 20 MG TABLET (FP) PO SCH (10:33)
[2017-06-04] MEDS: PRENATAL VITAMINS W/ FOLIC ACID TABLET (FP) PO SCH (10:33)
[2017-06-04] MEDS: ASPIRIN 81 MG CHEWABLE TABLETS PO SCH (10:33)
[2017-06-04] MEDS: ESCITALOPRAM OXALATE 10 MG TABLET (FP) PO SCH (10:33)
[2017-06-04] MEDS: NICOTINE 21 MG/24 HOURS TOPICAL PATCH TD SCH (10:35)
[2017-06-04] MEDS: FINASTERIDE 5 MG TABLET (FP) PO SCH (10:35)
[2017-06-04] MEDS: THIAMINE HCL 100 MG TABLET (FP) PO SCH (21:39)
[2017-06-04] MEDS: MELATONIN 5 MG TABLETS PO PRN (21:39)
[2017-06-04] MEDS: ATORVASTATIN CA 40 MG TABLET (FP) PO SCH (21:39)
[2017-06-04] MEDS: MIRTAZAPINE 15 MG TABLET (FP) PO SCH (21:39)
[2017-06-04] MEDS: SENNOSIDES 8.6MG TABLET (FP) PO PRN (21:41)
[2017-06-05] MEDS: metFORMIN HCL 500 MG TABLET (FP) PO SCH (06:45)
[2017-06-05] MEDS: GABAPENTIN 400 MG CAPSULE (FP) PO SCH (06:45)
[2017-06-05] MEDS: CYCLOBENZAPRINE HCL 10 MG TABLET (FP) PO PRN (06:45)
[2017-06-05 07:21] VITALS: TEMP 98.2
[2017-06-05] MEDS: dilTIAZem HCL 30 MG TABLET (FP) PO SCH (09:56)
[2017-06-05] MEDS: FINASTERIDE 5 MG TABLET (FP) PO SCH (09:56)
[2017-06-05] MEDS: PRENATAL VITAMINS W/ FOLIC ACID TABLET (FP) PO SCH (09:56)
[2017-06-05] MEDS: ESCITALOPRAM OXALATE 10 MG TABLET (FP) PO SCH (09:56)
[2017-06-05] MEDS: ASPIRIN 81 MG CHEWABLE TABLETS PO SCH (09:56)
[2017-06-05] MEDS: NICOTINE 21 MG/24 HOURS TOPICAL PATCH TD SCH (09:56)
[2017-06-05] MEDS: LISINOPRIL 20 MG TABLET (FP) PO SCH (09:56)
--- NOTE | 2017-06-05 10:12 | PN ---
Psychiatric Progress Note Vital Signs: Vital Signs Period Temp Pulse Resp BP Sys/Méndez Pulse Ox Last 24 Hr 98.2 F 68 16-16 106/76 Date of Session: 06/05/17 Chief Complaint:: discharge visit HPI: Patient has addressed cocaine,alcohol, nicotine dependence comorbid MDD. ROS: Low back pain,BPH, HTN, DM,migrains, dyslipidemia, h/o orthosurgery R knee. Current Medications: Active Medications Generic Name Dose Route Start Last Admin Trade Name Freq PRN Reason Stop Dose Admin Acetaminophen 650 mg 05/04/17 19:26 05/29/17 09:03 Tylenol - PO 650 mg Q4H PRN Administration FEVER OR PAIN Al Hydroxide/Mg Hydroxide 30 ml 05/04/17 19:26 Mylanta Oral Suspension - PO Q6H PRN DYSPEPSIA Albuterol Sulfate 2 puff 05/04/17 19:28 Ventolin Hfa Inhaler - IH Q4H PRN SHORT OF BREATH/WHEEZING Aspirin 81 mg 05/05/17 10:00 06/05/17 09:56 Asa - PO 81 mg DAILY SANDRA Administration Atorvastatin Calcium 40 mg 05/04/17 22:00 06/04/17 21:39 Lipitor - PO 40 mg HS SANDRA Administration Benzocaine 1 applic 06/03/17 06:43 Americaine Ointment - UT PRN PRN PAIN Cyclobenzaprine HCl 10 mg 05/04/17 19:32 06/05/17 06:45 Flexeril - PO 10 mg TID PRN Administration MUSCLE SPASMS Diltiazem HCl 30 mg 05/05/17 10:00 06/05/17 09:56 Cardizem - PO 30 mg DAILY SANDRA Administration Diphenhydramine HCl 50 mg 05/04/17 19:26 05/26/17 21:47 Benadryl - PO 50 mg HSMR1 PRN Administration INSOMNIA Escitalopram Oxalate 5 mg 05/09/17 10:00 06/05/17 09:56 Lexapro - PO 5 mg DAILY SANDRA Administration Eucalyptus/Menthol/Phenol/Sorbitol 1 each 05/04/17 19:26 Cepastat Lozenge - MM Q4H PRN SORE THROAT Finasteride 5 mg 05/05/17 10:00 06/05/17 09:56 Proscar - PO 5 mg DAILY SANDRA Administration Gabapentin 400 mg 05/04/17 22:00 06/05/17 06:45 Neurontin - PO 400 mg TID SANDRA Administration Guaifenesin 10 ml 05/04/17 19:26 Robitussin Dm - PO Q6H PRN COUGH Hydroxyzine Pamoate 50 mg 05/04/17 19:26 Vistaril - PO Q4H PRN AGITATION Lisinopril 40 mg 05/05/17 10:00 06/05/17 09:56 Prinivil PO 40 mg DAILY SANDRA Administration Loperamide HCl 4 mg 05/04/17 19:26 Imodium - PO Q6H PRN DIARRHEA Magnesium Citrate 300 ml 05/04/17 19:26 Citroma - PO Q48H PRN CONSTIPATION Magnesium Hydroxide 30 ml 05/04/17 19:26 Milk Of Magnesia - PO DAILY PRN CONSTIPATION Melatonin 5 mg 05/08/17 15:17 06/04/17 21:39 Melatonin PO 5 mg HS PRN Administration INSOMNIA Metformin HCl 500 mg 05/05/17 07:00 06/05/17 06:45 Glucophage - PO 500 mg BID@0700,1630 SANDRA Administration Mirtazapine 45 mg 05/08/17 22:00 06/04/17 21:39 Remeron - PO 45 mg HS SANDRA Administration Nicotine 21 mg 05/05/17 10:00 06/05/17 09:56 Nicoderm Patch - TD Not Given DAILY SANDRA Nicotine Polacrilex 4 mg 05/04/17 19:26 Nicorette Gum - BUC Q2H PRN NICOTINE REPLACEMENT RX Multivit/Folic Acid/Iron 1 tab 05/05/17 10:00 06/05/17 09:56 Vitamins (Sjr) - PO 1 tab DAILY SANDRA Administration Pseudoephedrine/Triprolidine 1 combo 05/04/17 19:26 Actifed - PO TID PRN NASAL CONGESTION Senna 2 tab 05/04/17 19:32 06/04/17 21:41 Senna - PO 2 tab HS PRN Administration CONSTIPATION Thiamine HCl 100 mg 05/04/17 22:00 06/04/17 21:39 Vitamin B1 - PO 100 mg HS SANDRA Administration Current Side Effect: No Lab tests ordered: No Lab tests reviewed: Yes Provider note:: Patient has completed today his treatment and met his goals, will contnue to address his issues at [facility].Patient gained insights into his baddiction and motivated to continue maintain abstinence. Patient was encouraged to utilize all supports to prevent relapses. Medications Remeron and Melatonin well tolerated, scripts provided, patient is stable for discharge today. Total face to face time:: 35 Mental Status Exam - Mental Status Exam Alert and Oriented to: Time, Place, Person Cognitive Function: Fair Patient Appearance: Well Groomed Mood: Hopeful Affect: Appropriate, Mood Congruent Patient Behavior: Appropriate, Cooperative Speech Pattern: Clear, Appropriate Voice Loudness: Normal Thought Process: Goal Oriented Thought Disorder: Not Present Hallucinations: Denies Suicidal Ideation: Denies Homicidal Ideation: Denies Insight/Judgement: Fair Sleep: Well Appetite: Good Muscle strength/Tone: Normal Gait/Station: Normal Psychiatric Treatment Plan - Problem List (1) Nicotine dependence Current Visit: Yes Qualifiers: Nicotine product type: cigarettes Substance use status: in withdrawal Qualified Code(s): F17.213 - Nicotine dependence, cigarettes, with withdrawal (2) Asthma Current Visit: Yes Qualifiers: Asthma severity: mild intermittent Asthma complication type: with status asthmaticus Qualified Code(s): J45.22 - Mild intermittent asthma with status asthmaticus (3) Alcohol dependence Current Visit: Yes (4) Cocaine dependence Current Visit: Yes (5) MDD (major depressive disorder) Current Visit: Yes
[2017-06-05 10:52] VITALS: BP 134/84; PULSE 70
== END 2017-06-05 10:30 | disposition home or self-care (01) | DRG 895 ==
LOC: YASAS 16:33 → Y3N 19:16 → Y5N 05-08 12:10
PROVIDERS: ADMIT Internal Medicine; ATTEND Psychiatry & Neurology Psychiatry
PROC: HZ2ZZZZ Detoxification Services for Substance Abuse Treatment (ICD-10-PCS; principal; 2017-05-04)
PROC: HZ42ZZZ Group Counseling for Substance Abuse Treatment, Cognitive-Behavioral (ICD-10-PCS; 2017-05-08)
DX: F10.230 Alcohol dependence with withdrawal, uncomplicated (principal); F14.20 Cocaine dependence, uncomplicated; J45.22 Mild intermittent asthma with status asthmaticus; F17.210 Nicotine dependence, cigarettes, uncomplicated; F19.24 Other psychoactive substance dependence with psychoactive substance-induced mood disorder; E11.9 Type 2 diabetes mellitus without complications; Z79.84 Long term (current) use of oral hypoglycemic drugs; K59.01 Slow transit constipation; I10 Essential (primary) hypertension; F34.1 Dysthymic disorder; N40.0 Benign prostatic hyperplasia without lower urinary tract symptoms; Z91.5 Personal history of self-harm
CPT/HCPCS: 36415; 71020-TC; 80048; 80053; 81003; 81015; 85027; 86593; 93005; 93010